=== PATIENT | female | born 1975 | race Caucasian/White ===

== ENCOUNTER 2023-03-27 09:59 | Observation (INO) ==
[2023-03-27] MEDS ORDERED: MoRPHine SULFATE 4 MG/ML 1 ML CARP\\VIAL IV STA (10:34)
[2023-03-27] MEDS ORDERED: FAMOTIDINE 20MG IV PUSH 20 MG/5 ML SYR IV STA (10:34)
[2023-03-27] MEDS ORDERED: ONDANSETRON INJ 2 MG/ML 2 ML VIAL IV STA (10:34)
--- NOTE | 2023-03-27 10:35 | Emergency Department Note ---
History of Present Illness General Chief complaint: Flank Pain Stated complaint: possible gal bladder issue Time Seen by Provider: 03/27/23 10:20 History of Present Illness Maximum Pain Intensity: 8 This is a 47-year-old female that presents to the emergency department via private vehicle with complaints of "possible gallbladder issue". The patient notes for the past several months she has been experiencing what she describes as heartburn. She notes mainly pain postprandially under the right breast region that radiates to her back. She states that this has acutely worsened as of recent. Pain is significant after eating. She has associated fever/chills. She denies any alleviating factors. She has tried Tums and milk with minimal relief. Last evening the pain worsened. She denies any pertinent past medical history, pertinent surgeries. She does have medication allergies but no new ones. Home Medications Medication Instructions Recorded Confirmed Type famotidine 20 mg tablet (Pepcid) 20 mg PO DAILY #14 tabs 03/28/23 Rx ondansetron HCl 4 mg tablet 4 mg PO Q8H PRN nausea and 03/28/23 Rx vomiting #20 tabs pantoprazole 40 mg tablet,delayed 40 mg PO DAILY #14 tabs 03/28/23 Rx release Allergies Allergy/AdvReac Type Severity Reaction Status Date / Time sulfamethoxazole Allergy Severe anaphylaxis Verified 03/27/23 12:44 trimethoprim Allergy Severe anaphylaxis Verified 03/27/23 12:44 Bactrim Allergy Unknown unknown Verified 03/21/14 21:02 bupropion [From Wellbutrin] AdvReac Intermediate blurred Verified 03/27/23 12:44 vision paroxetine [From Paxil] AdvReac Intermediate Unknown Verified 03/27/23 12:44 Past Med/Surg History Medical History Acute cystitis Dysfunctional uterine bleeding Insomnia Irregular periods (01/04/13) Surgical History H/O tooth extraction History of dilatation and curettage History of hysterectomy History of shoulder surgery Family History Mother Heart disease Grandmother (Maternal) Ovarian cancer Uterine cancer Sister Endometriosis Denies family history of Colon cancer Prostate cancer Myocardial infarction Breast cancer Social History Smoking Status: Current every day smoker Tobacco Type: Cigarettes and E-cigarettes / Vaping Age Started Using Tobacco: 12; packs per day: 1; Second Hand Exposure: Yes; Do You Dip or Chew Tobacco: No; Hx Alcohol Use: No Hx Substance Use: Yes Last Used Substance: Days (ago) Last Used Substance Other:: 3 yrs ago Substance Use Type Other:: medical marijuana Preferred Language: Citizen Of [place] Communication Ability: Effective Visual Impairment: Partially Limited Hearing Ability: Normal Calliope Player Required: No Beliefs That Will Affect Care: None marital status: Current Living Situation: Other Current Living Situation Comment: sister current occupational status: employed current occupation: [employer] Feels Safe at Home: Yes Safety Concerns: Feels Safe At This Time Childhood Exposure to Second-Hand Smoke: Yes Dental Care, Regularly: Yes Physical Activity Frequency: Daily Seatbelt Use: sometimes Sunscreen Use: No Do you think of yourself as: straight/heterosexual Assistive Devices: None Review of Systems A total of 10 systems reviewed and were otherwise negative Physical Exam Vital Signs Vital Signs - 24 hr 03/27/23 12:00 03/27/23 13:04 03/27/23 13:05 Pulse Rate 70 Pulse Rate [Bilateral] 51 L 70 Respiratory Rate 18 18 18 Respiratory Depth Normal Blood Pressure [Left Arm] 113/69 123/87 Blood Pressure Mean [Left Arm] 83 99 Pulse Oximetry 99 96 98 Oxygen Delivery Method Room Air Room Air Room Air VITAL SIGNS - Vital signs and nursing notes were reviewed. Stable and afebrile. GENERAL -47-year-old female appearing her stated age who is in no acute distress. Communicates well with provider and answers questions appropriately. SKIN - Without rashes. HEAD - NC/AT. EYES - PERRL with EOMI bilaterally. Sclera anicteric. EARS - No deformities of external structures noted on gross examination bilaterally. NOSE - Midline and without cyanosis. No epistaxis or purulent drainage noted. MOUTH/OROPHARYNX - Without perioral cyanosis. NECK - Neck with FROM. No nuchal rigidity. LUNGS - Chest wall symmetric without accessory muscle use, intercostals retractions, or central cyanosis. Normal vesicular breath sounds CTA B/L. No wheezes, rales, or rhonchi appreciated. CARDIAC - RRR with S1/S2. No murmur, rubs, or gallops appreciated. ABDOMEN - Abdominal contour normal without pulsations or visible masses. BS normoactive all four quadrants. RUQ TTP noted. No palpable masses, hepatosplenomegaly, or ascites noted. EXTREMITIES - No clubbing or peripheral cyanosis. +5/5 strength noted in UE/LE bilaterally. NEUROLOGIC - Cranial nerves II through XII grossly intact. PSYCH - A&Ox3 and cooperates fully with examiner. Pt is very pleasant and interacts well with examiner. Course Administered Medications Discontinued Medications Al Hydrox/Mg Hydrox/Simethicone (Aluminum/Magnesium Susp 30 Ml Udc) 30 ml PO NOW STA Stop: 03/28/23 10:42 Last Admin: 03/28/23 12:11 Dose: 30 ml Documented By: JOSE Famotidine (Famotidine Susp 40 Mg/5 Ml Udp) 40 mg PO DAILY JOSIANE Stop: 04/27/23 10:59 Last Admin: 03/28/23 12:06 Dose: 40 mg Documented By: JOSE Famotidine (Pepcid 20mg Iv Push) 20 mg in 5 mls @ 2.5 mls/min IV NOW STA Stop: 03/27/23 10:35 Last Admin: 03/27/23 10:52 Dose: 2.5 mls/min Documented By: SHANNON Pantoprazole Sodium 40 mg/ (Syringe) 10 mls @ 5 mls/min IV NOW ONE Stop: 03/27/23 13:51 Last Admin: 03/27/23 21:41 Dose: Not Given Documented By: ABDULKADIR Sodium Chloride (Nss 1000ml) 1,000 mls @ 125 mls/hr IV .Q8H JOSIANE Stop: 04/26/23 14:29 Last Admin: 03/28/23 13:26 Dose: Not Given Documented By: Infusion: 03/28/23 13:26 Dose: 0 mls/hr Documented By: Admin: 03/28/23 03:42 Dose: 125 mls/hr Documented By: Infusion: 03/28/23 02:48 Dose: 125 mls/hr Documented By: Admin: 03/27/23 18:48 Dose: 125 mls/hr Documented By: JOSE Piperacillin Sod/Tazobactam (Sod 4.5 gm/ Dextrose) 120 mls @ 240 mls/hr IV NOW STA; Protocol Stop: 03/27/23 15:13 Last Admin: 03/27/23 21:41 Dose: Not Given Documented By: ABDULKADIR Piperacillin Sod/Tazobactam (Sod 4.5 gm/ Dextrose) 120 mls @ 240 mls/hr IV NOW STA; Protocol Stop: 03/27/23 19:57 Last Admin: 03/27/23 20:18 Dose: Not Given Documented By: ABDULKADIR Piperacillin Sod/Tazobactam (Sod 4.5 gm/ Dextrose) 120 mls @ 30 mls/hr IV Q8H JOSIANE; Protocol Stop: 04/07/23 00:59 Last Infusion: 03/28/23 13:27 Dose: 0 mls/hr Documented By: Admin: 03/28/23 09:31 Dose: 30 mls/hr Documented By: Infusion: 03/28/23 05:25 Dose: 0 mls/hr Documented By: Admin: 03/28/23 01:08 Dose: 30 mls/hr Documented By: ABDULKADIR Pantoprazole Sodium 40 mg/ (Syringe) 10 mls @ 5 mls/min IV NOW ONE Stop: 03/27/23 20:16 Last Admin: 03/27/23 20:29 Dose: 5 mls/min Documented By: ABDULKADIR Piperacillin Sod/Tazobactam (Sod 4.5 gm/ Dextrose) 120 mls @ 240 mls/hr IV NOW ONE; Protocol Stop: 03/27/23 20:49 Last Infusion: 03/27/23 21:42 Dose: 0 mls/hr Documented By: Admin: 03/27/23 20:30 Dose: 240 mls/hr Documented By: ABDULKADIR Pantoprazole Sodium 40 mg/ (Syringe) 10 mls @ 5 mls/min IV DAILY@1100 JOSIANE Stop: 04/27/23 10:59 Last Admin: 03/28/23 12:03 Dose: 5 mls/min Documented By: JOSE Ioversol (Optiray 320 100ml) 92 ml IV ONCE ONE Stop: 03/27/23 12:41 Last Admin: 03/27/23 12:30 Dose: 92 ml Documented By: CONTRERAS Ketorolac Tromethamine (Ketorolac Tromethamine 15 Mg/Ml Vial) 15 mg IV NOW ONE Stop: 03/27/23 15:31 Last Admin: 03/27/23 21:41 Dose: Not Given Documented By: ABDULKADIR Miscellaneous (Remove Nicoderm Patch) 1 each N/A DAILY@0859 [facility] Stop: 04/27/23 08:58 Last Admin: 03/28/23 06:57 Dose: Not Given Documented By: JOSE Morphine Sulfate (Morphine Sulfate 4 Mg/Ml 1 Ml Carp\\Vial) 4 mg IV NOW STA Stop: 03/27/23 10:35 Last Admin: 03/27/23 10:51 Dose: 4 mg Documented By: AM Morphine Sulfate (Morphine Sulfate 2 Mg/Ml Carp) 2 mg IV NOW STA Stop: 03/27/23 12:01 Last Admin: 03/27/23 12:15 Dose: 2 mg Documented By: SERGEY Morphine Sulfate (Morphine Sulfate 4 Mg/Ml 1 Ml Carp\\Vial) 3 mg IV Q3H PRN PRN Reason: Pain Stop: 04/10/23 14:24 Last Admin: 03/28/23 09:17 Dose: 3 mg Documented By: Admin: 03/27/23 22:52 Dose: 3 mg Documented By: Admin: 03/27/23 19:41 Dose: 3 mg Documented By: ABDULKADIR Nicotine (Nicotine 14 Mg/24 Hr Patch) 14 mg TD QAM [facility] Stop: 04/26/23 16:44 Last Admin: 03/27/23 21:41 Dose: Not Given Documented By: ABDULKADIR Nicotine (Nicotine 14 Mg/24 Hr Patch) 14 mg TD DAILY [facility] Stop: 04/26/23 19:59 Last Admin: 03/28/23 09:24 Dose: 14 mg Documented By: Admin: 03/27/23 21:39 Dose: Not Given Documented By: ABDULKADIR Ondansetron HCl (Ondansetron Inj 2 Mg/Ml 2 Ml Vial) 4 mg IV NOW STA Stop: 03/27/23 10:35 Last Admin: 03/27/23 10:50 Dose: 4 mg Documented By: AM Potassium Chloride (Potassium Chloride Crtab 20 Meq Tabcr) 20 meq PO NOW STA Stop: 03/27/23 15:23 Last Admin: 03/27/23 21:41 Dose: Not Given Documented By: ABDULKADIR Potassium Chloride (Potassium Chloride Crtab 20 Meq Tabcr) 20 meq PO NOW STA Stop: 03/27/23 19:55 Last Admin: 03/27/23 20:28 Dose: 20 meq Documented By: ABDULKADIR Medical Decision Making Laboratory Data 03/28/23 07:24 03/28/23 07:24 Lab Results 03/27/23 03/27/23 03/27/23 Range/Units 10:20 10:20 10:20 WBC 12.88 H (4.8-10.8) K/ul RBC 4.25 (4.20-5.40) M/uL Hgb 15.4 (12.0-16.0) g/dl Hct 43.1 (37.0-47.0) % MCV 101.4 H (80.0-100.0) fL MCH 36.2 H (25.0-34.0) pg MCHC 35.7 (32.0-36.0) g/dL RDW Std Deviation 48.5 H (36.4-46.3) fL RDW Coeff of Viola 12.9 (11.5-14.5) % Plt Count 389 (130-400) K/uL MPV 9.1 L (9.4-12.4) fL Immature Gran % (Auto) 0.5 % Neut % (Auto) 60.6 % Lymph % (Auto) 30.4 % [place] % (Auto) 6.3 % Eos % (Auto) 1.3 % Baso % (Auto) 0.9 % Neut # (Auto) 7.81 H (1.40-6.50) K/uL Lymph # (Auto) 3.91 H (1.20-3.40) K/uL [place] # (Auto) 0.81 H (0.11-0.59) K/uL Eos # (Auto) 0.17 (0.00-0.50) K/uL Baso # (Auto) 0.11 (0.00-0.20) K/uL Immature Gran # (Auto) 0.07 (0.01-0.20) K/uL Sodium 140 (136-145) mmol/L Potassium 3.5 (3.5-5.1) mmol/L Chloride 107 (98-107) mmol/L Carbon Dioxide 28 (21-32) mmol/L Anion Gap 5 (3-11) BUN 14 (6-23) mg/dl Creatinine 0.83 (0.6-1.2) mg/dl Est Cr Clr Drug Dosing 62.5 ml/min Est GFR ( Amer) 96.6 ml/min Est GFR (Non-Af Amer) 83.4 ml/min BUN/Creatinine Ratio 16.9 (10-20) Glucose 58 L (70-99(Fasting)) mg/dl Calcium 10.1 (8.6-10.3) mg/dl Total Bilirubin 0.3 (0.2-1.0) mg/dl AST 14 (13-39) U/L ALT 11 (7-52) U/L Alkaline Phosphatase 74 (34-104) U/L Troponin I High Sens 4.2 (0-14) pg/ml Total Protein 7.0 (6.0-8.3) gm/dl Albumin 4.3 (3.4-5.0) gm/dl Globulin 2.7 (2.5-4.0) gm/dl Albumin/Globulin Ratio 1.6 (0.9-2) Lipase 20 (11-82) U/L HCG, Qual Negative (Negative) Urine Color Urine Appearance (Clear) Urine pH (4.5-7.5) Ur Specific [place] (1.000-1.030) Urine Protein (Negative) Urine Glucose (UA) (Negative) Urine Ketones (Negative) Urine Blood (Negative) Urine Nitrite (Negative) Urine Bilirubin (Negative) Urine Urobilinogen (Negative) Ur Leukocyte Esterase (Negative) Urine WBC (Auto) (0-5) /hpf Urine RBC (Auto) (0-4) /hpf U Hyaline Cast (Auto) (0-5) /lpf U Epithel Cells (Auto) (0-5) /lpf Urine Bacteria (Auto) (Negative) 03/27/23 Range/Units 11:40 WBC (4.8-10.8) K/ul RBC (4.20-5.40) M/uL Hgb (12.0-16.0) g/dl Hct (37.0-47.0) % MCV (80.0-100.0) fL MCH (25.0-34.0) pg MCHC (32.0-36.0) g/dL RDW Std Deviation (36.4-46.3) fL RDW Coeff of Viola (11.5-14.5) % Plt Count (130-400) K/uL MPV (9.4-12.4) fL Immature Gran % (Auto) % Neut % (Auto) % Lymph % (Auto) % [place] % (Auto) % Eos % (Auto) % Baso % (Auto) % Neut # (Auto) (1.40-6.50) K/uL Lymph # (Auto) (1.20-3.40) K/uL [place] # (Auto) (0.11-0.59) K/uL Eos # (Auto) (0.00-0.50) K/uL Baso # (Auto) (0.00-0.20) K/uL Immature Gran # (Auto) (0.01-0.20) K/uL Sodium (136-145) mmol/L Potassium (3.5-5.1) mmol/L Chloride (98-107) mmol/L Carbon Dioxide (21-32) mmol/L Anion Gap (3-11) BUN (6-23) mg/dl Creatinine (0.6-1.2) mg/dl Est Cr Clr Drug Dosing ml/min Est GFR ( Amer) ml/min Est GFR (Non-Af Amer) ml/min BUN/Creatinine Ratio (10-20) Glucose (70-99(Fasting)) mg/dl Calcium (8.6-10.3) mg/dl Total Bilirubin (0.2-1.0) mg/dl AST (13-39) U/L ALT (7-52) U/L Alkaline Phosphatase (34-104) U/L Troponin I High Sens (0-14) pg/ml Total Protein (6.0-8.3) gm/dl Albumin (3.4-5.0) gm/dl Globulin (2.5-4.0) gm/dl Albumin/Globulin Ratio (0.9-2) Lipase (11-82) U/L HCG, Qual (Negative) Urine Color Yellow Urine Appearance Clear (Clear) Urine pH 6.0 (4.5-7.5) Ur Specific [place] 1.004 (1.000-1.030) Urine Protein Negative (Negative) Urine Glucose (UA) Negative (Negative) Urine Ketones Negative (Negative) Urine Blood 3+ H (Negative) Urine Nitrite Negative (Negative) Urine Bilirubin Negative (Negative) Urine Urobilinogen Negative (Negative) Ur Leukocyte Esterase Negative (Negative) Urine WBC (Auto) 1-5 (0-5) /hpf Urine RBC (Auto) 0-4 (0-4) /hpf U Hyaline Cast (Auto) 1-5 (0-5) /lpf U Epithel Cells (Auto) 20-30 H (0-5) /lpf Urine Bacteria (Auto) Negative (Negative) Imaging Data Radiologist's Impression: XR chest 1V portable CLINICAL HISTORY: RUQ abd pain TECHNIQUE: Single frontal radiograph of the chest was obtained. Comparison: Comparison is made to chest and abdomen radiographs 12/27/2013 FINDINGS: No lines and tubes are seen. The cardiomediastinal silhouette is normal. The lungs are clear. No evidence of pleural effusion or pneumothorax. IMPRESSION: No acute chest disease. ACT 112: Negative or not required by law. Electronically signed by: Travis Mcgovern M.D. 03/27/2023 10:45 AM US gallbladder CLINICAL HISTORY: Right upper quadrant abdominal pain. COMPARISON STUDY: Right upper quadrant ultrasound March 21, [address] of the abdomen and pelvis March 22, 2014. FINDINGS: The liver is sonographically normal with exception of a 9 mm right hepatic lobe cyst. There is no biliary ductal dilatation. Common bile duct measures 5 mm in caliber. Pancreas is unremarkable by sonography. There are no gallstones. There is no gallbladder wall thickening. A tiny 3 mm gallbladder polyp is incidentally noted. There is no right hydronephrosis. Right-sided extrarenal pelvis is incidentally noted. IMPRESSION: No gallstones or biliary ductal dilatation. ACT 112: Negative or not required by law. Electronically signed by: Bernard Rae M.D. 03/27/2023 11:[address] OF THE ABDOMEN AND PELVIS WITH CONTRAST CLINICAL HISTORY: Right upper quadrant abdominal pain. COMPARISON STUDY: CT of the abdomen and pelvis March 22, 2014 and right upper quadrant ultrasound performed earlier today. TECHNIQUE: Following IV administration of 92 mL of Optiray, axial images of the abdomen and pelvis were obtained from the lung bases to the proximal femurs. Images were reviewed in the axial, sagittal, and coronal planes. IV contrast was administered without complication. Automated exposure control was utilized for the study. A dose lowering technique was utilized adhering to the principles of ALARA. CT DOSE: 342.27 mGy.cm FINDINGS: Lung bases are unremarkable. No pneumatosis, free air or portal venous gas is present. A few hepatic cysts are again noted. These are benign. There are no biliary or pancreatic ductal dilatation. The spleen, adrenal glands, kidneys and pancreas are unremarkable. There are no ureteral calculi. The appendix is normal. The caliber and wall thickness of small and large bowel are normal. There is no ascites. No lymphadenopathy. No fluid collections. Major vasculature is patent. No acute fractures. IMPRESSION: 1. No acute process within the abdomen or pelvis. 2. Normal appendix. No bowel obstruction. No bowel wall thickening. ACT 112: Negative or not required by law. Electronically signed by: Bernard Rae M.D. 03/27/2023 1:06 PM MDM Narrative Patient was seen and evaluated as above in room A12. Review was performed of triage nursing notes and vital signs. After obtaining a thorough history and physical examination the above work up was performed. Patient presents to us today for evaluation of right upper quadrant abdominal pain that is worse postprandially. Patient appears to be in pain. She has reproducible right upper quadrant abdominal pain. No fever. Options of care were discussed with the patient. IV access was established. Labs were drawn. Mild leukocytosis. No concerning anemia. No emergent metabolic disturbance. Urinalysis does not suggest infection. An ultrasound was obtained of the gallbladder which was essentially negative for emergent process as well as CT scan of the abdomen/pelvis noting the location of discomfort. CT scan also returned with no acute process. To be thorough, a chest x-ray, EKG and troponin were also ordered. EKG reveals normal sinus rhythm at a rate of 71 bpm. QTc 406. QRS 74. Troponin within normal range. The patient while here in the ED did require more than 1 dose of IV analgesia. She also was provided IV antiemetic as well as IV Pepcid. She continues with symptoms. With her continued postprandial right upper quadrant abdominal pain in the outpatient setting now with worsening symptoms with leukocytosis despite negative imaging thus far, I found it reasonable to discuss presentation with general surgery, Dr. Hayes. At this time we will proceed with inpatient management via medicine service, surgery consult and HIDA scan. At this time I do believe further evaluation and management is warranted in the inpatient setting. Case discussed with the hospitalist. IV PPI recommended pending evaluation. Please refer to further documentation regarding her stay. Patient amenable to proceeding with inpatient management. Low suspicion for acute cardiac etiology. Low suspicion for PE at this time. GCS: 15 In the evaluation and treatment of this patient, the following differential diagnoses were considered: ASC, [place], Pneumonia, GERD, Cholecystitis, Ascending Cholangitis, Cholydocholithiasis, Bowel Obstruction, PE, Amongst Others. Impression & Plan RUQ pain, Postprandial abdominal pain in right upper quadrant, Leukocytosis Discharge Plan Visit Data Chief Complaint: Flank Pain Stated Complaint: possible gal bladder issue ED Provider: Bora Sarmiento ED Midlevel Provider: Roly Clarke Discharge Problem: RUQ pain, Postprandial abdominal pain in right upper quadrant, Leukocytosis Patient Disposition: Admitted As Inpatient Condition: Good Discharge Instructions Interventions: ED Discharge Assessment Last Done: 03/27/23 18:12
--- NOTE | 2023-03-27 10:46 | XRay Report ---
XR chest 1V portable CLINICAL HISTORY: RUQ abd pain TECHNIQUE: Single frontal radiograph of the chest was obtained. Comparison: Comparison is made to chest and abdomen radiographs 12/27/2013 FINDINGS: No lines and tubes are seen. The cardiomediastinal silhouette is normal. The lungs are clear. No evid ence of pleural effusion or pneumothorax. IMPRESSION: No acute chest disease. ACT 112: Negative or not required by law. Electronically signed by: Travis Mcgovern M.D. 03/27/2023 10:45 AM
[2023-03-27 10:49] LABS: Basophils # (auto) 0.11 K/uL (0.00-0.20); Basophils % (auto) 0.9 %; Eosinophils # (auto) 0.17 K/uL (0.00-0.50); Eosinophils % (auto) 1.3 %; Hematocrit (blood only) 43.1 % (37.0-47.0); Hemoglobin 15.4 g/dl (12.0-16.0); Immature Granulocytes # (auto) 0.07 K/uL (0.01-0.20); Immature Granulocytes % (auto) 0.5 %; Lymphocytes # (auto) 3.91 K/uL (1.20-3.40); Lymphocytes % (auto) 30.4 %; Mean Corpuscular Hemoglobin 36.2 pg (25.0-34.0); Mean Corpuscular Hgb Conc 35.7 g/dL (32.0-36.0); Mean Corpuscular Volume 101.4 fL (80.0-100.0); Mean Platelet Volume 9.1 fL (9.4-12.4); Monocytes # (auto) 0.81 K/uL (0.11-0.59); Monocytes % (auto) 6.3 %; Neutrophils # (auto) 7.81 K/uL (1.40-6.50); Neutrophils % (auto) 60.6 %; Platelet Count 389 K/uL (130-400); RDW Coefficient of Variation 12.9 % (11.5-14.5); RDW Standard Deviation 48.5 fL (36.4-46.3); Red Blood Count 4.25 M/uL (4.20-5.40); White Blood Count 12.88 K/ul (4.8-10.8)
[2023-03-27 11:04] LABS: Pregnancy Test, Serum Negative (Negative)
[2023-03-27 11:07] LABS: Albumin Globulin Ratio 1.6 (0.9-2); Albumin Level 4.3 gm/dl (3.4-5.0); BUN Creatinine Ratio 16.9 (10-20); Bilirubin,Total 0.3 mg/dl (0.2-1.0); Calcium 10.1 mg/dl (8.6-10.3); Creatinine Clr Calc Pharmacy 62.5 ml/min; Est GFR (African American) 96.6 ml/min; Est GFR (Non-African American) 83.4 ml/min; Globulin 2.7 gm/dl (2.5-4.0); Potassium 3.5 mmol/L (3.5-5.1)
[2023-03-27 11:11] LABS: Troponin I High Sensitivity 4.2 pg/ml (0-14)
--- NOTE | 2023-03-27 11:54 | Ultrasound Report ---
US gallbladder CLINICAL HISTORY: Right upper quadrant abdominal pain. COMPARISON STUDY: Right upper quadrant ultrasound March 21, [address] of the abdomen and pelvis A ugust 2013. FINDINGS: The liver is sonographically normal with exception of a 9 mm right hepatic lobe cyst. There is no biliary ductal dilatation. Common bile duct measures 5 mm in caliber. Pancreas is unremarkable by sonography. There are no gallstones. There is no gallbladder wall thickening. A tiny 3 mm gallbla dder polyp is incidentally noted. There is no right hydronephrosis. Right-sided extrarenal pelvis is incidentally noted. IMPRESSION: No gallstones or biliary ductal dilatation. ACT 112: Negative or not required by law. Electronically signed by: Bernard Rae M.D. 03/27/2023 11:53 AM
[2023-03-27] MEDS ORDERED: MoRPHine SULFATE 2 MG/ML CARP IV STA (12:00)
[2023-03-27 12:01] LABS: Appearance Urine Clear (Clear); Bacteria Urine Automated Negative (Negative); Bilirubin Urine Negative (Negative); Blood Urine 3+ (Negative); Color Urine Yellow; Epithelial Cell Urine Auto 20-30 /lpf (0-5); Glucose Urine UA Negative (Negative); Ketones Urine Negative (Negative); Leukocyte Esterase Urine Negative (Negative); Nitrite Urine Negative (Negative); Protein Urine Negative (Negative); RBC Urine Automated 0-4 /hpf (0-4); Specific Gravity Urine 1.004 (1.000-1.030); Urobilinogen Urine Negative (Negative)
[2023-03-27] MEDS ORDERED: OPTIRAY 320 100ml IV ONE (12:40)
--- NOTE | 2023-03-27 13:09 | CT Scan Report ---
CT OF THE ABDOMEN AND PELVIS WITH CONTRAST CLINICAL HISTORY: Right upper quadrant abdominal pain. COMPARISON STUDY: CT of the abdomen and pelvis March 22, 2014 and right upper quadrant ultrasound p erformed earlier today. TECHNIQUE: Following IV administration of 92 mL of Optiray, axial images of the abdomen and pelvis we re obtained from the lung bases to the proximal femurs. Images were reviewed in the axial, sagittal, and coronal planes. IV contrast was administered without complication. Automated exposure control wa s utilized for the study. A dose lowering technique was utilized adhering to the principles of ALARA . CT DOSE: 342.27 mGy.cm FINDINGS: Lung bases are unremarkable. No pneumatosis, free air or portal venous gas is present. A fe w hepatic cysts are again noted. These are benign. There are no biliary or pancreatic ductal dilatati on. The spleen, adrenal glands, kidneys and pancreas are unremarkable. There are no ureteral calculi. The appendix is normal. The caliber and wall thickness of small and large bowel are normal. There is no ascites. No lymphadenopathy. No fluid collections. Major vasculature is patent. No acute fracture s. IMPRESSION: 1. No acute process within the abdomen or pelvis. 2. Normal appendix. No bowel obstruction. No bowel wall thickening. ACT 112: Negative or not required by law. Electronically signed by: Bernard Rae M.D. 03/27/2023 1:06 PM
[2023-03-27] MEDS ORDERED: PANTOprazole 40 MG in SYRINGE 0 ML IV ONE ×2 (13:50→20:15)
--- NOTE | 2023-03-27 13:52 | Surgery Consultation ---
Date of Consultation March 27, 2023 Assessment & Plan (1) RUQ pain: Assessment: Patient is a 47 years old female who presented to ED with intermittent RUQ pain for 2 months. Pain is getting worse today. Patient had the ultrasound CT scan diagnosis normal finding. RBC seen in urine. LFTS normal. Plan: unknown cause right upper quadrant pain. I agreed with medicine team admit pt to hospital for further study. HIDA scan, november order KUB to R/O kidney stone. control pain, start zosyn. repeat labs in morning, clear diet okay. iv fluid, will F/U pt agreed with the plan, i answered all questions. History of Present Illness Reason for Consultation: RUQ pain Requesting Physician: Bora Sarmiento History of Present Illness CC: RUQ pain HPI: Patient is a 47 years old female risks of possible medical history dyslipidemia, anxiety, PTSD, restless leg syndrome and degenerative disc disease( lumbar) and kidney stone. Patient presented to ED with 2-month history intermittent right upper quadrant pain. The pain was sharp. and patient did have more pain today. The patient related to the food intake. The pain radiated to the back. Patient denies nausea vomiting. no fever or chills, no diarrhea or constipation. Patient had a ultrasound study and a CT scan in the ED which were normal. RBCs seen in urine . Allergies Allergy/AdvReac Type Severity Reaction Status Date / Time sulfamethoxazole Allergy Severe anaphylaxis Verified 03/27/23 12:44 trimethoprim Allergy Severe anaphylaxis Verified 03/27/23 12:44 Bactrim Allergy Unknown unknown Verified 03/21/14 21:02 bupropion [From Wellbutrin] AdvReac Intermediate blurred Verified 03/27/23 12:44 vision paroxetine [From Paxil] AdvReac Intermediate Unknown Verified 03/27/23 12:44 Home Medications Medication Instructions Recorded Confirmed Type naproxen sodium 220 mg tablet 220 mg PO BID PRN Pain 03/27/23 03/27/23 History (Aleve) Patient History Medical History Acute cystitis Dysfunctional uterine bleeding Insomnia Irregular periods (01/04/13) Surgical History H/O tooth extraction History of dilatation and curettage History of hysterectomy History of shoulder surgery Family History Mother Heart disease Grandmother (Maternal) Ovarian cancer Uterine cancer Sister Endometriosis Denies family history of Colon cancer Prostate cancer Myocardial infarction Breast cancer Social History Smoking Status: Current every day smoker Tobacco Type: Cigarettes Age Started Using Tobacco: 12; packs per day: 1; Second Hand Exposure: Yes; Do You Dip or Chew Tobacco: No; Hx Alcohol Use: No Hx Substance Use: Yes Last Used Substance: Unknown Last Used Substance Other:: 3 yrs ago Preferred Language: Zambian Communication Ability: Effective Visual Impairment: Partially Limited Hearing Ability: Normal marital status: Current Living Situation: Family Current Living Situation Comment: w/ daughter current occupational status: employed current occupation: [employer] Feels Safe at Home: Yes Childhood Exposure to Second-Hand Smoke: Yes Dental Care, Regularly: Yes Physical Activity Frequency: Daily Seatbelt Use: sometimes Sunscreen Use: No Do you think of yourself as: straight/heterosexual Review of Systems Constitutional: as per Subjective / HPI Eyes: as per Subjective / HPI Respiratory: as per Subjective / HPI Cardiovascular: as per Subjective / HPI Additional Comments: Hyperlipidemia Gastrointestinal: as per Subjective / HPI Genitourinary: Kidney stone Neurologic: as per Subjective / HPI Psychiatric: PTSD Endocrine: as per Subjective / HPI Hematologic / Lymphatic: as per Subjective / HPI Physical Exam Constitutional: WD/WN, vitals as above Eyes: PERRL, conjunctivae normal, anicteric sclerae Neck: trachea midline, no thyromegaly Respiratory: normal respiratory effort, lungs clear to auscultation Cardiovascular: RRR, no murmur, no edema Gastrointestinal (Abdomen): soft, mild tenderness ar RUQ pain, no rebound pain, no distend, BS +. Musculoskeletal: no cyanosis or clubbing, extremities motor strength 5/5 Neurologic: patellar DTR's 2+ bilat, sensation intact Psychiatric: A+Ox3, euthymic affect Results & Data Vital Signs (Past 12 Hours) Vital Signs Temp Pulse Pulse Resp BP BP Pulse Ox 03/27/23 13:05 70 18 123/87 98 03/27/23 13:04 70 18 96 03/27/23 12:00 51 L 18 113/69 99 03/27/23 10:54 73 03/27/23 10:55 100 03/27/23 10:09 36.4 C L 82 20 143/86 H 100 O2 Del Method 03/27/23 13:05 Room Air 03/27/23 13:04 Room Air 03/27/23 12:00 Room Air 03/27/23 10:54 03/27/23 10:55 Room Air 03/27/23 10:09 Room Air Laboratory Results Lab Results 03/27/23 03/27/23 03/27/23 Range/Units 10:20 10:20 10:20 WBC 12.88 H (4.8-10.8) K/ul RBC 4.25 (4.20-5.40) M/uL Hgb 15.4 (12.0-16.0) g/dl Hct 43.1 (37.0-47.0) % MCV 101.4 H (80.0-100.0) fL MCH 36.2 H (25.0-34.0) pg MCHC 35.7 (32.0-36.0) g/dL RDW Std Deviation 48.5 H (36.4-46.3) fL RDW Coeff of Viola 12.9 (11.5-14.5) % Plt Count 389 (130-400) K/uL MPV 9.1 L (9.4-12.4) fL Immature Gran % (Auto) 0.5 % Neut % (Auto) 60.6 % Lymph % (Auto) 30.4 % [place] % (Auto) 6.3 % Eos % (Auto) 1.3 % Baso % (Auto) 0.9 % Neut # (Auto) 7.81 H (1.40-6.50) K/uL Lymph # (Auto) 3.91 H (1.20-3.40) K/uL [place] # (Auto) 0.81 H (0.11-0.59) K/uL Eos # (Auto) 0.17 (0.00-0.50) K/uL Baso # (Auto) 0.11 (0.00-0.20) K/uL Immature Gran # (Auto) 0.07 (0.01-0.20) K/uL Sodium 140 (136-145) mmol/L Potassium 3.5 (3.5-5.1) mmol/L Chloride 107 (98-107) mmol/L Carbon Dioxide 28 (21-32) mmol/L Anion Gap 5 (3-11) BUN 14 (6-23) mg/dl Creatinine 0.83 (0.6-1.2) mg/dl Est Cr Clr Drug Dosing 62.5 ml/min Est GFR ( Amer) 96.6 ml/min Est GFR (Non-Af Amer) 83.4 ml/min BUN/Creatinine Ratio 16.9 (10-20) Glucose 58 L (70-99(Fasting)) mg/dl Calcium 10.1 (8.6-10.3) mg/dl Total Bilirubin 0.3 (0.2-1.0) mg/dl AST 14 (13-39) U/L ALT 11 (7-52) U/L Alkaline Phosphatase 74 (34-104) U/L Troponin I High Sens 4.2 (0-14) pg/ml Total Protein 7.0 (6.0-8.3) gm/dl Albumin 4.3 (3.4-5.0) gm/dl Globulin 2.7 (2.5-4.0) gm/dl Albumin/Globulin Ratio 1.6 (0.9-2) Lipase 20 (11-82) U/L HCG, Qual Negative (Negative) Urine Color Urine Appearance (Clear) Urine pH (4.5-7.5) Ur Specific [place] (1.000-1.030) Urine Protein (Negative) Urine Glucose (UA) (Negative) Urine Ketones (Negative) Urine Blood (Negative) Urine Nitrite (Negative) Urine Bilirubin (Negative) Urine Urobilinogen (Negative) Ur Leukocyte Esterase (Negative) Urine WBC (Auto) (0-5) /hpf Urine RBC (Auto) (0-4) /hpf U Hyaline Cast (Auto) (0-5) /lpf U Epithel Cells (Auto) (0-5) /lpf Urine Bacteria (Auto) (Negative) 03/27/23 Range/Units 11:40 WBC (4.8-10.8) K/ul RBC (4.20-5.40) M/uL Hgb (12.0-16.0) g/dl Hct (37.0-47.0) % MCV (80.0-100.0) fL MCH (25.0-34.0) pg MCHC (32.0-36.0) g/dL RDW Std Deviation (36.4-46.3) fL RDW Coeff of Viola (11.5-14.5) % Plt Count (130-400) K/uL MPV (9.4-12.4) fL Immature Gran % (Auto) % Neut % (Auto) % Lymph % (Auto) % [place] % (Auto) % Eos % (Auto) % Baso % (Auto) % Neut # (Auto) (1.40-6.50) K/uL Lymph # (Auto) (1.20-3.40) K/uL [place] # (Auto) (0.11-0.59) K/uL Eos # (Auto) (0.00-0.50) K/uL Baso # (Auto) (0.00-0.20) K/uL Immature Gran # (Auto) (0.01-0.20) K/uL Sodium (136-145) mmol/L Potassium (3.5-5.1) mmol/L Chloride (98-107) mmol/L Carbon Dioxide (21-32) mmol/L Anion Gap (3-11) BUN (6-23) mg/dl Creatinine (0.6-1.2) mg/dl Est Cr Clr Drug Dosing ml/min Est GFR ( Amer) ml/min Est GFR (Non-Af Amer) ml/min BUN/Creatinine Ratio (10-20) Glucose (70-99(Fasting)) mg/dl Calcium (8.6-10.3) mg/dl Total Bilirubin (0.2-1.0) mg/dl AST (13-39) U/L ALT (7-52) U/L Alkaline Phosphatase (34-104) U/L Troponin I High Sens (0-14) pg/ml Total Protein (6.0-8.3) gm/dl Albumin (3.4-5.0) gm/dl Globulin (2.5-4.0) gm/dl Albumin/Globulin Ratio (0.9-2) Lipase (11-82) U/L HCG, Qual (Negative) Urine Color Yellow Urine Appearance Clear (Clear) Urine pH 6.0 (4.5-7.5) Ur Specific [place] 1.004 (1.000-1.030) Urine Protein Negative (Negative) Urine Glucose (UA) Negative (Negative) Urine Ketones Negative (Negative) Urine Blood 3+ H (Negative) Urine Nitrite Negative (Negative) Urine Bilirubin Negative (Negative) Urine Urobilinogen Negative (Negative) Ur Leukocyte Esterase Negative (Negative) Urine WBC (Auto) 1-5 (0-5) /hpf Urine RBC (Auto) 0-4 (0-4) /hpf U Hyaline Cast (Auto) 1-5 (0-5) /lpf U Epithel Cells (Auto) 20-30 H (0-5) /lpf Urine Bacteria (Auto) Negative (Negative) Diagnostic Findings CT OF THE ABDOMEN AND PELVIS WITH CONTRAST CLINICAL HISTORY: Right upper quadrant abdominal pain. COMPARISON STUDY: CT of the abdomen and pelvis March 22, 2014 and right upper quadrant ultrasound performed earlier today. TECHNIQUE: Following IV administration of 92 mL of Optiray, axial images of the abdomen and pelvis were obtained from the lung bases to the proximal femurs. Images were reviewed in the axial, sagittal, and coronal planes. IV contrast was administered without complication. Automated exposure control was utilized for the study. A dose lowering technique was utilized adhering to the principles of ALARA. CT DOSE: 342.27 mGy.cm FINDINGS: Lung bases are unremarkable. No pneumatosis, free air or portal venous gas is present. A few hepatic cysts are again noted. These are benign. There are no biliary or pancreatic ductal dilatation. The spleen, adrenal glands, kidneys and pancreas are unremarkable. There are no ureteral calculi. The appendix is normal. The caliber and wall thickness of small and large bowel are normal. There is no ascites. No lymphadenopathy. No fluid collections. Major vasculature is patent. No acute fractures. IMPRESSION: 1. No acute process within the abdomen or pelvis. 2. Normal appendix. No bowel obstruction. No bowel wall thickening. ACT 112: Negative or not required by law. US gallbladder CLINICAL HISTORY: Right upper quadrant abdominal pain. COMPARISON STUDY: Right upper quadrant ultrasound March 21, [address] of the abdomen and pelvis March 22, 2014. FINDINGS: The liver is sonographically normal with exception of a 9 mm right hepatic lobe cyst. There is no biliary ductal dilatation. Common bile duct measures 5 mm in caliber. Pancreas is unremarkable by sonography. There are no gallstones. There is no gallbladder wall thickening. A tiny 3 mm gallbladder polyp is incidentally noted. There is no right hydronephrosis. Right-sided extrarenal pelvis is incidentally noted. IMPRESSION: No gallstones or biliary ductal dilatation.
--- NOTE | 2023-03-27 13:57 | History & Physical Report ---
Date of Service March 27, 2023 Assessment & Plan (1) RUQ pain: Plan: RUQ pain Epigastric pain GERD, possible PUD Patient reports right upper quadrant pain, symptoms of GERD, and nausea for past 2 months but now worsening Vomiting for past 2 days Also reports significant weight loss CT abdomen pelvis, gallbladder ultrasound, chest x-ray obtained in the ED, and unrevealing. Received Zofran, morphine, famotidine in ED, and not feeling much improved. ED provider discussed with general surgery, recommended HIDA scan HIDA scan is ordered Surgery also recommends IV fluids and Zosyn, which were started Given her history of GERD symptoms, epigastric pain, also concern for possible PUD, will also start IV PPI Cont. NPO, IVF, advance to clear liquid if tolerates pain management Patient may benefit from gastroenterology consultation outpatient or inpatient depending on her symptoms during her hosp. stay DVT ppx scds History of Present Illness Chief Complaint: RUQ pain Primary Care Provider: Yuli Castro PA-C Pt is a 47 F with hx of cervical spondylosis, restless leg syndrome, major depressive disorder, tobacco use disorder, who now presents with right upper quadrant pain radiating to her back, and worsening symptoms of GERD for past 2 months, however much worse today. Patient denies taking any medications at this time besides using medical marijuana. She smokes about half a pack a day, denies any alcohol use. Past medical history review shows using NSAIDs. Patient reports having nausea and vomiting for the past 2 days, she also says that she has been nauseous almost all the time for past 2 months and her oral intake has been poor. She also reports losing significant amount of weight. Denies any diarrhea, blood in the stool or hematemesis. No fevers chills chest pain shortness of breath. No dysuria. No significant cough. In the ED, CT abdomen pelvis was obtained as well as ultrasound of gallbladder and chest x-ray, which were all unrevealing. WBC 12.8K. She received Zofran and morphine, and famotidine. She does not feel much improved yet. Patient's son is present at the bedside. ED consulted with surgery, Dr. Hayes, who recommended HIDA scan. Reviewed his note, recommends IV fluids and Zosyn and will continue to closely monitor. Allergies Allergy/AdvReac Type Severity Reaction Status Date / Time sulfamethoxazole Allergy Severe anaphylaxis Verified 03/27/23 12:44 trimethoprim Allergy Severe anaphylaxis Verified 03/27/23 12:44 Bactrim Allergy Unknown unknown Verified 03/21/14 21:02 bupropion [From Wellbutrin] AdvReac Intermediate blurred Verified 03/27/23 12:44 vision paroxetine [From Paxil] AdvReac Intermediate Unknown Verified 03/27/23 12:44 Home Medications Medication Instructions Recorded Confirmed Type naproxen sodium 220 mg tablet 220 mg PO BID PRN Pain 03/27/23 03/27/23 History (Aleve) Past Med/Surg History Medical History Acute cystitis Dysfunctional uterine bleeding Insomnia Irregular periods (01/04/13) Surgical History H/O tooth extraction History of dilatation and curettage History of hysterectomy History of shoulder surgery Family History Mother Heart disease Grandmother (Maternal) Ovarian cancer Uterine cancer Sister Endometriosis Denies family history of Colon cancer Prostate cancer Myocardial infarction Breast cancer Social History Smoking Status: Current every day smoker Tobacco Type: Cigarettes Age Started Using Tobacco: 12; packs per day: 1; Second Hand Exposure: Yes; Do You Dip or Chew Tobacco: No; Hx Alcohol Use: No Hx Substance Use: Yes Last Used Substance: Unknown Last Used Substance Other:: 3 yrs ago Preferred Language: Pakistani Communication Ability: Effective Visual Impairment: Partially Limited Hearing Ability: Normal marital status: Current Living Situation: Family Current Living Situation Comment: w/ daughter current occupational status: employed current occupation: [employer] Feels Safe at Home: Yes Childhood Exposure to Second-Hand Smoke: Yes Dental Care, Regularly: Yes Physical Activity Frequency: Daily Seatbelt Use: sometimes Sunscreen Use: No Do you think of yourself as: straight/heterosexual Review of Systems Review of Systems: All systems reviewed & are unremarkable except as noted in HPI & below Physical Exam Constitutional: WD/WN, vitals as above Eyes: PERRL, conjunctivae normal, anicteric sclerae ENMT: external ear and nose normal, oropharynx normal Neck: trachea midline, no thyromegaly Respiratory: normal respiratory effort, lungs clear to auscultation Cardiovascular: RRR, no murmur, no edema Chest (Breasts): Chest: normal inspection of chest Gastrointestinal (Abdomen): Inspection/Auscultation: abdomen normal to inspection (soft abdomen, tender at epigastric and RUQ region) Musculoskeletal: no cyanosis or clubbing, extremities motor strength 5/5 Skin: no rashes, warm and dry Neurologic: PERRL, EOMI, accommodation nl, no face palsy, no dysarthria Psychiatric: A+Ox3, euthymic affect Results & Data Results & Data Vital Signs (Past 12 Hours) Vital Signs Temp Pulse Pulse Resp BP BP Pulse Ox 03/27/23 13:05 70 18 123/87 98 03/27/23 13:04 70 18 96 03/27/23 12:00 51 L 18 113/69 99 03/27/23 10:54 73 03/27/23 10:55 100 03/27/23 10:09 36.4 C L 82 20 143/86 H 100 O2 Del Method 03/27/23 13:05 Room Air 03/27/23 13:04 Room Air 03/27/23 12:00 Room Air 03/27/23 10:54 03/27/23 10:55 Room Air 03/27/23 10:09 Room Air Laboratory Results 03/27/23 03/27/23 03/27/23 Range/Units 11:40 10:20 10:20 WBC (4.8-10.8) K/ul RBC (4.20-5.40) M/uL Hgb (12.0-16.0) g/dl Hct (37.0-47.0) % MCV (80.0-100.0) fL MCH (25.0-34.0) pg MCHC (32.0-36.0) g/dL RDW Std Deviation (36.4-46.3) fL RDW Coeff of Viola (11.5-14.5) % Plt Count (130-400) K/uL MPV (9.4-12.4) fL Immature Gran % (Auto) % Neut % (Auto) % Lymph % (Auto) % [place] % (Auto) % Eos % (Auto) % Baso % (Auto) % Neut # (Auto) (1.40-6.50) K/uL Lymph # (Auto) (1.20-3.40) K/uL [place] # (Auto) (0.11-0.59) K/uL Eos # (Auto) (0.00-0.50) K/uL Baso # (Auto) (0.00-0.20) K/uL Immature Gran # (Auto) (0.01-0.20) K/uL Sodium 140 (136-145) mmol/L Potassium 3.5 (3.5-5.1) mmol/L Chloride 107 (98-107) mmol/L Carbon Dioxide 28 (21-32) mmol/L Anion Gap 5 (3-11) BUN 14 (6-23) mg/dl Creatinine 0.83 (0.6-1.2) mg/dl Est Cr Clr Drug Dosing 62.5 ml/min Est GFR ( Amer) 96.6 ml/min Est GFR (Non-Af Amer) 83.4 ml/min BUN/Creatinine Ratio 16.9 (10-20) Glucose 58 L (70-99(Fasting)) mg/dl Calcium 10.1 (8.6-10.3) mg/dl Total Bilirubin 0.3 (0.2-1.0) mg/dl AST 14 (13-39) U/L ALT 11 (7-52) U/L Alkaline Phosphatase 74 (34-104) U/L Troponin I High Sens 4.2 (0-14) pg/ml Total Protein 7.0 (6.0-8.3) gm/dl Albumin 4.3 (3.4-5.0) gm/dl Globulin 2.7 (2.5-4.0) gm/dl Albumin/Globulin Ratio 1.6 (0.9-2) Lipase 20 (11-82) U/L HCG, Qual Negative (Negative) Urine Color Yellow Urine Appearance Clear (Clear) Urine pH 6.0 (4.5-7.5) Ur Specific [place] 1.004 (1.000-1.030) Urine Protein Negative (Negative) Urine Glucose (UA) Negative (Negative) Urine Ketones Negative (Negative) Urine Blood 3+ H (Negative) Urine Nitrite Negative (Negative) Urine Bilirubin Negative (Negative) Urine Urobilinogen Negative (Negative) Ur Leukocyte Esterase Negative (Negative) Urine WBC (Auto) 1-5 (0-5) /hpf Urine RBC (Auto) 0-4 (0-4) /hpf U Hyaline Cast (Auto) 1-5 (0-5) /lpf U Epithel Cells (Auto) 20-30 H (0-5) /lpf Urine Bacteria (Auto) Negative (Negative) 03/27/23 Range/Units 10:20 WBC 12.88 H (4.8-10.8) K/ul RBC 4.25 (4.20-5.40) M/uL Hgb 15.4 (12.0-16.0) g/dl Hct 43.1 (37.0-47.0) % MCV 101.4 H (80.0-100.0) fL MCH 36.2 H (25.0-34.0) pg MCHC 35.7 (32.0-36.0) g/dL RDW Std Deviation 48.5 H (36.4-46.3) fL RDW Coeff of Viola 12.9 (11.5-14.5) % Plt Count 389 (130-400) K/uL MPV 9.1 L (9.4-12.4) fL Immature Gran % (Auto) 0.5 % Neut % (Auto) 60.6 % Lymph % (Auto) 30.4 % [place] % (Auto) 6.3 % Eos % (Auto) 1.3 % Baso % (Auto) 0.9 % Neut # (Auto) 7.81 H (1.40-6.50) K/uL Lymph # (Auto) 3.91 H (1.20-3.40) K/uL [place] # (Auto) 0.81 H (0.11-0.59) K/uL Eos # (Auto) 0.17 (0.00-0.50) K/uL Baso # (Auto) 0.11 (0.00-0.20) K/uL Immature Gran # (Auto) 0.07 (0.01-0.20) K/uL Sodium (136-145) mmol/L Potassium (3.5-5.1) mmol/L Chloride (98-107) mmol/L Carbon Dioxide (21-32) mmol/L Anion Gap (3-11) BUN (6-23) mg/dl Creatinine (0.6-1.2) mg/dl Est Cr Clr Drug Dosing ml/min Est GFR ( Amer) ml/min Est GFR (Non-Af Amer) ml/min BUN/Creatinine Ratio (10-20) Glucose (70-99(Fasting)) mg/dl Calcium (8.6-10.3) mg/dl Total Bilirubin (0.2-1.0) mg/dl AST (13-39) U/L ALT (7-52) U/L Alkaline Phosphatase (34-104) U/L Troponin I High Sens (0-14) pg/ml Total Protein (6.0-8.3) gm/dl Albumin (3.4-5.0) gm/dl Globulin (2.5-4.0) gm/dl Albumin/Globulin Ratio (0.9-2) Lipase (11-82) U/L HCG, Qual (Negative) Urine Color Urine Appearance (Clear) Urine pH (4.5-7.5) Ur Specific [place] (1.000-1.030) Urine Protein (Negative) Urine Glucose (UA) (Negative) Urine Ketones (Negative) Urine Blood (Negative) Urine Nitrite (Negative) Urine Bilirubin (Negative) Urine Urobilinogen (Negative) Ur Leukocyte Esterase (Negative) Urine WBC (Auto) (0-5) /hpf Urine RBC (Auto) (0-4) /hpf U Hyaline Cast (Auto) (0-5) /lpf U Epithel Cells (Auto) (0-5) /lpf Urine Bacteria (Auto) (Negative) Medications Administered CT abd./ pelvis FINDINGS: Lung bases are unremarkable. No pneumatosis, free air or portal venous gas is present. A few hepatic cysts are again noted. These are benign. There are no biliary or pancreatic ductal dilatation. The spleen, adrenal glands, kidneys and pancreas are unremarkable. There are no ureteral calculi. The appendix is normal. The caliber and wall thickness of small and large bowel are normal. There is no ascites. No lymphadenopathy. No fluid collections. Major vasculature is patent. No acute fractures. IMPRESSION: 1. No acute process within the abdomen or pelvis. 2. Normal appendix. No bowel obstruction. No bowel wall thickening. US gallbladder FINDINGS: The liver is sonographically normal with exception of a 9 mm right hepatic lobe cyst. There is no biliary ductal dilatation. Common bile duct measures 5 mm in caliber. Pancreas is unremarkable by sonography. There are no gallstones. There is no gallbladder wall thickening. A tiny 3 mm gallbladder polyp is incidentally noted. There is no right hydronephrosis. Right-sided extrarenal pelvis is incidentally noted. IMPRESSION: No gallstones or biliary ductal dilatation. CXR FINDINGS: No lines and tubes are seen. The cardiomediastinal silhouette is normal. The lungs are clear. No evidence of pleural effusion or pneumothorax. IMPRESSION: No acute chest disease.
[2023-03-27] MEDS ORDERED: PIPERACILLIN/TAZOBACTAM 4.5 GM (over 30 mins) IV STA ×2 (14:44→19:28)
[2023-03-27] MEDS ORDERED: POTASSIUM CHLORIDE CRTAB 20 MEQ TABCR PO STA ×2 (15:22→19:54)
[2023-03-27] MEDS ORDERED: KETOROLAC TROMETHAMINE 15 MG/ML VIAL IV ONE (15:30)
[2023-03-27] MEDS ORDERED: NICOTINE 14 MG/24 HR PATCH TD SCH (16:45)
[2023-03-27] MEDS: SODIUM CHLORIDE 0.9% 1,000 ML IV SCH (18:48)
--- NOTE | 2023-03-27 18:52 | Nuclear Medicine Report ---
NM hepatobiliary CLINICAL HISTORY: RUQ pain TECHNIQUE: Following the intravenous injection of 4.6 mCi of Tc-99m labeled Technetium 99m mebrofeni n, multiple images of the upper abdomen were obtained in the anterior projection with uptake measurem ents of the gallbladder obtained. Once the gallbladder and small bowel were visualized, the patient w as intravenously infused over 30 minutes with 0.02 mcg/kg of Sincalide (CCK), and imaging and uptakes were again obtained. Comparison: None available at the time of this dictation. FINDINGS/IMPRESSION: Normal uptake is in the liver and gallbladder. Radiotracer flows into the common bile duct and is present in the small bowel at 90 minutes. ACT 112: Negative or not required by law. Electronically signed by: Travis Mcgovern M.D. 03/27/2023 6:50 PM
[2023-03-27] MEDS ORDERED: PIPERACILLIN/TAZOBACTAM 4.5 GM in DEXTROSE 5% 100 ML IV SCH (19:00)
[2023-03-27] MEDS: MoRPHine SULFATE 4 MG/ML 1 ML CARP\\VIAL IV PRN ×2 (19:41→22:52)
[2023-03-27] MEDS ORDERED: PIPERACILLIN/TAZOBACTAM 4.5 GM (over 30 mins) IV ONE (20:20)
[2023-03-27] MEDS: NICOTINE 14 MG/24 HR PATCH TD SCH (21:39)
--- NOTE | 2023-03-27 22:24 | XRay Report ---
KUB CLINICAL HISTORY: Right upper quadrant abdominal pain. FINDINGS: 2 AP, portable, supine abdominal radiographs are compared to study dated 07/12/2014 and cor related with abdominal CT performed the same day 03/27/2023. There is a nonobstructed abdominal bowel gas pattern. No evidence of intraperitoneal free air is seen on these supine images. Excreted IV cont rast fills the renal collecting systems. There is also excreted IV contrast in the bladder. Phlebolit hs are noted in the pelvis. The bony structures appear intact. The lung bases are clear as imaged. IMPRESSION: No acute abnormality is identified. Electronically signed by: Negrito Tate M.D. 03/27/2023 10:22 PM
[2023-03-28] MEDS: PIPERACILLIN/TAZOBACTAM 4.5 GM in DEXTROSE 5% 100 ML IV SCH ×2 (01:08→09:31)
[2023-03-28] MEDS: SODIUM CHLORIDE 0.9% 1,000 ML IV SCH ×2 (03:42→13:26)
[2023-03-28 07:55] LABS: Hematocrit (blood only) 35.9 % (37.0-47.0); Hemoglobin 12.5 g/dl (12.0-16.0); Mean Corpuscular Hemoglobin 35.1 pg (25.0-34.0); Mean Corpuscular Hgb Conc 34.8 g/dL (32.0-36.0); Mean Corpuscular Volume 100.8 fL (80.0-100.0); Platelet Count 323 K/uL (130-400); RDW Standard Deviation 48.5 fL (36.4-46.3); Red Blood Count 3.56 M/uL (4.20-5.40); White Blood Count 7.98 K/ul (4.8-10.8)
[2023-03-28 08:22] LABS: Albumin Globulin Ratio 1.5 (0.9-2); Albumin Level 3.4 gm/dl (3.4-5.0); BUN Creatinine Ratio 11.2 (10-20); Bilirubin,Total 0.6 mg/dl (0.2-1.0); Calcium 7.9 mg/dl (8.6-10.3); Creatinine Clr Calc Pharmacy 58.3 ml/min; Est GFR (African American) 88.8 ml/min; Est GFR (Non-African American) 76.6 ml/min; Globulin 2.3 gm/dl (2.5-4.0); Magnesium 1.9 mg/dl (1.7-2.4); Total Protein 5.7 gm/dl (6.0-8.3)
[2023-03-28] MEDS: MoRPHine SULFATE 4 MG/ML 1 ML CARP\\VIAL IV PRN (09:17)
[2023-03-28] MEDS: NICOTINE 14 MG/24 HR PATCH TD SCH (09:24)
[2023-03-28] MEDS ORDERED: ALUMINUM/MAGNESIUM SUSP 30 ML UDC PO STA (10:41)
[2023-03-28 10:59] LABS: Appearance Urine Clear (Clear); Bacteria Urine Automated Negative (Negative); Bilirubin Urine Negative (Negative); Blood Urine 3+ (Negative); Color Urine Yellow; Epithelial Cell Urine Auto >30 /lpf (0-5); Glucose Urine UA Negative (Negative); Ketones Urine Negative (Negative); Leukocyte Esterase Urine Negative (Negative); Nitrite Urine Negative (Negative); Protein Urine Negative (Negative); Specific Gravity Urine 1.023 (1.000-1.030); Urobilinogen Urine Negative (Negative); pH Urine 5.5 (4.5-7.5)
[2023-03-28] MEDS ORDERED: PANTOprazole 40 MG in SYRINGE 0 ML IV SCH (11:00)
[2023-03-28] MEDS ORDERED: FAMOTIDINE SUSP 40 MG/5 ML UDP PO SCH (11:00)
--- NOTE | 2023-03-28 13:23 | Discharge Summary ---
Date of Service March 28, 2023 Admission HPI Per Admitting Provider Pt is a 47 F with hx of cervical spondylosis, restless leg syndrome, major depressive disorder, tobacco use disorder, who now presents with right upper quadrant pain radiating to her back, and worsening symptoms of GERD for past 2 months, however much worse today. Patient denies taking any medications at this time besides using medical marijuana. She smokes about half a pack a day, denies any alcohol use. Past medical history review shows using NSAIDs. Patient reports having nausea and vomiting for the past 2 days, she also says that she has been nauseous almost all the time for past 2 months and her oral intake has been poor. She also reports losing significant amount of weight. Denies any diarrhea, blood in the stool or hematemesis. No fevers chills chest pain shortness of breath. No dysuria. No significant cough. In the ED, CT abdomen pelvis was obtained as well as ultrasound of gallbladder and chest x-ray, which were all unrevealing. WBC 12.8K. She received Zofran and morphine, and famotidine. She does not feel much improved yet. Patient's son is present at the bedside. ED consulted with surgery, Dr. Hayes, who recommended HIDA scan. Reviewed his note, recommends IV fluids and Zosyn and will continue to closely monitor. Admission Exam Per Admitting Provider Constitutional: WD/WN, vitals as above Eyes: PERRL, conjunctivae normal, anicteric sclerae ENMT: external ear and nose normal, oropharynx normal Neck: trachea midline, no thyromegaly Respiratory: normal respiratory effort, lungs clear to auscultation Cardiovascular: RRR, no murmur, no edema Chest (Breasts): Chest: normal inspection of chest Gastrointestinal (Abdomen): Inspection/Auscultation: abdomen normal to inspection (soft abdomen, tender at epigastric and RUQ region) Musculoskeletal: no cyanosis or clubbing, extremities motor strength 5/5 B Skin: no rashes, warm and dry Neurologic: PERRL, EOMI, accommodation nl, no face palsy, no dysarthria Psychiatric: A+Ox3, euthymic affect Principal Diagnosis Abdominal pain Discharge Exam Constitutional + well hydrated; no acute distress Eyes PERRL, conjunctivae normal, anicteric sclerae ENMT external ear and nose normal, oropharynx normal Respiratory normal respiratory effort, lungs clear to auscultation Cardiovascular RRR, no murmur, no edema Gastrointestinal (Abdomen) Soft, epigastric tenderness, no organomegaly, no guarding/rebound. Normal bowel sounds Musculoskeletal no cyanosis or clubbing, extremities motor strength 5/5 Neurologic PERRL, EOMI, accommodation nl, no face palsy, no dysarthria Psychiatric A+Ox3, euthymic affect Discharge Data Allergies Allergy/AdvReac Type Severity Reaction Status Date / Time sulfamethoxazole Allergy Severe anaphylaxis Verified 03/27/23 12:44 trimethoprim Allergy Severe anaphylaxis Verified 03/27/23 12:44 Bactrim Allergy Unknown unknown Verified 03/21/14 21:02 bupropion [From Wellbutrin] AdvReac Intermediate blurred Verified 03/27/23 12:44 vision paroxetine [From Paxil] AdvReac Intermediate Unknown Verified 03/27/23 12:44 Consultations 03/27/23 13:51 ED Decision to Admit Stat 03/27/23 14:26 Consult General Surgery Routine Ordered Studies 03/27/23 10:34 US gallbladder Stat 03/27/23 12:00 CT abd pelvis IV con only Stat Hospital Course (1) Abdominal pain: (2) RUQ pain: RUQ pain Epigastric pain GERD, possible PUD Patient presented with epigastric and right upper quadrant pain and referred to the back Reports heart velasquez and occasional feeling of regurgitation at night Symptoms have been ongoing for past 2 months but now worsening CT abdomen pelvis, gallbladder ultrasound, chest x-ray obtained in the ED were unremarkable HIDA scan was unremarkable Lipase was normal Abdominal pain likely related to Gastritis/PUD Patient started on IV PPI and pepcid She still reports mild to moderate epigastric and RUQ pain today but stated she will like to be discharged today Patient encouraged to follow up with PCP and may need GI follow up for endoscopies if pain persists. Advised to stop NSAID use Discharged on 2 weeks trial of PPI and pepcid Total Time Total Time Spent Total Time Spent (In Minutes): 35 Total Time Includes: Examination of the Patient, Discharge Planning and Medication Reconciliation Discharge Plan Discharge Items Patient Disposition: Home - Self-Care Reason For Visit: Abdominal pain Discharge Diagnosis: Abdominal pain Condition on Discharge: Good Activity: Resume your previous activity Non-emergency contact: Primary Care Provider Call non-emergency contact if: you have any medication questions and your symptoms worsen Follow-up/Referrals: Mingear,Yuli A., PA-C [Primary Care Provider] - (Date & Time 04/03/2023 11:20 AM Provider Arcenio Puri MD [facility] ) Diet: Regular Addtl Attending Provider Instructions: Ms Blanton You came to the hospital complaining of persistent intermittent abdominal pain. You were extensively evaluated without any acute findings on imaging. Please stop taking NSAIDS (alleve, motrin, etc) for now. You are being discharged on a trial of Pantoprazole and pepcid Please ensure follow up with your Primary Doctor. If symptoms persist, you will need further evaluation. Pending Studies at Discharge: No Stand-Alone Forms: My [facility] [employer], Work/School Release, Smoking Cessation Medications and DC Order Prescriptions: New pantoprazole 40 mg tablet,delayed release (DR/EC) 40 mg PO DAILY Qty: 14 0RF famotidine [Pepcid] 20 mg tablet 20 mg PO DAILY Qty: 14 0RF ondansetron HCl 4 mg tablet 4 mg PO Q8H PRN (Reason: nausea and vomiting) Qty: 20 0RF Discontinued naproxen sodium [Aleve] 220 mg Tablet 220 mg PO BID PRN (Reason: Pain) Discharge Orders: Discharge Order (Routine); Ordered 03/28/23 Ordered By: Clarissa Amezquita/Other Patient Handouts: ED Vomiting (Adult) Admission Data Admit Date/Time: 03/27/23 14:24 Attending Provider: Clarissa Gong I. Admit Provider: Everett Sharif Primary Care Provider: Yuli Castro Other Providers: Everett Sharif ; Grecia Hayes Other Interventions: Discharge Summary Assessment (RN) Last Done: 03/28/23 13:44
--- NOTE | 2023-03-28 15:38 | Surgery Progress Note ---
Date of Service March 28, 2023 Assessment & Plan (1) RUQ pain: Plan: Etiology unknown, possible UGI etiology HIDA and KUB unremarkable Plan No surgical intervention recommended at this time Advised GI follow-up as outpatient, may need upper endoscopy Advised clear liquids at home and slowly advanced will send rx for zofran prn nausea to [facility] Admission and Anticipated Discharge Date Admission Date: March 27, 2023 Subjective states she tried to eat chicken and had nausea and vomiting no significant pain no fevers or chills said hospitalist is going to discharge home Physical Exam Constitutional: WD/WN, vitals as above cooperative and comfortable; no acute distress and not ill appearing Respiratory: normal respiratory effort Skin: no rashes, warm and dry no jaundice Psychiatric: A+Ox3, euthymic affect Results & Data Vital Signs (Past 12 Hours) Vital Signs Temp Pulse Pulse Resp BP Pulse Ox O2 Del Method 03/28/23 13:44 36.8 C 59 L 59 L 16 96/62 L 96 03/28/23 07:16 36.8 C 59 L 16 96/62 L 96 Room Air Laboratory Results 03/28/23 03/28/23 03/28/23 Range/Units 08:45 08:45 08:40 WBC (4.8-10.8) K/ul RBC (4.20-5.40) M/uL Hgb (12.0-16.0) g/dl Hct (37.0-47.0) % MCV (80.0-100.0) fL MCH (25.0-34.0) pg MCHC (32.0-36.0) g/dL RDW Std Deviation (36.4-46.3) fL RDW Coeff of Viola (11.5-14.5) % Plt Count (130-400) K/uL MPV (9.4-12.4) fL Sodium (136-145) mmol/L Potassium (3.5-5.1) mmol/L Chloride (98-107) mmol/L Carbon Dioxide (21-32) mmol/L Anion Gap (3-11) BUN (6-23) mg/dl Creatinine (0.6-1.2) mg/dl Est Cr Clr Drug Dosing ml/min Est GFR ( Amer) ml/min Est GFR (Non-Af Amer) ml/min BUN/Creatinine Ratio (10-20) Glucose (70-99(Fasting)) mg/dl Lactate 0.6 (0.4-2.0) mmol/L Calcium (8.6-10.3) mg/dl Phosphorus (2.5-4.9) mg/dl Magnesium (1.7-2.4) mg/dl Total Bilirubin (0.2-1.0) mg/dl AST (13-39) U/L ALT (7-52) U/L Alkaline Phosphatase (34-104) U/L Total Creatine Kinase 63 (26-192) U/L Total Protein (6.0-8.3) gm/dl Albumin (3.4-5.0) gm/dl Globulin (2.5-4.0) gm/dl Albumin/Globulin Ratio (0.9-2) Urine Color Yellow Urine Appearance Clear (Clear) Urine pH 5.5 (4.5-7.5) Ur Specific [place] 1.023 (1.000-1.030) Urine Protein Negative (Negative) Urine Glucose (UA) Negative (Negative) Urine Ketones Negative (Negative) Urine Blood 3+ H (Negative) Urine Nitrite Negative (Negative) Urine Bilirubin Negative (Negative) Urine Urobilinogen Negative (Negative) Ur Leukocyte Esterase Negative (Negative) Urine WBC (Auto) 1-5 (0-5) /hpf Urine RBC (Auto) 10-30 H (0-4) /hpf U Hyaline Cast (Auto) 1-5 (0-5) /lpf U Epithel Cells (Auto) >30 H (0-5) /lpf Urine Bacteria (Auto) Negative (Negative) 03/28/23 03/28/23 Range/Units 07:24 07:24 WBC 7.98 (4.8-10.8) K/ul RBC 3.56 L (4.20-5.40) M/uL Hgb 12.5 D (12.0-16.0) g/dl Hct 35.9 L (37.0-47.0) % MCV 100.8 H (80.0-100.0) fL MCH 35.1 H (25.0-34.0) pg MCHC 34.8 (32.0-36.0) g/dL RDW Std Deviation 48.5 H (36.4-46.3) fL RDW Coeff of Viola 13.0 (11.5-14.5) % Plt Count 323 (130-400) K/uL MPV 9.0 L (9.4-12.4) fL Sodium 140 (136-145) mmol/L Potassium 4.0 (3.5-5.1) mmol/L Chloride 112 H (98-107) mmol/L Carbon Dioxide 25 (21-32) mmol/L Anion Gap 3 (3-11) BUN 10 (6-23) mg/dl Creatinine 0.89 (0.6-1.2) mg/dl Est Cr Clr Drug Dosing 58.3 ml/min Est GFR ( Amer) 88.8 ml/min Est GFR (Non-Af Amer) 76.6 ml/min BUN/Creatinine Ratio 11.2 (10-20) Glucose 93 (70-99(Fasting)) mg/dl Lactate (0.4-2.0) mmol/L Calcium 7.9 L D (8.6-10.3) mg/dl Phosphorus 3.0 (2.5-4.9) mg/dl Magnesium 1.9 (1.7-2.4) mg/dl Total Bilirubin 0.6 (0.2-1.0) mg/dl AST 14 (13-39) U/L ALT 10 (7-52) U/L Alkaline Phosphatase 52 (34-104) U/L Total Creatine Kinase (26-192) U/L Total Protein 5.7 L (6.0-8.3) gm/dl Albumin 3.4 (3.4-5.0) gm/dl Globulin 2.3 L (2.5-4.0) gm/dl Albumin/Globulin Ratio 1.5 (0.9-2) Urine Color Urine Appearance (Clear) Urine pH (4.5-7.5) Ur Specific [place] (1.000-1.030) Urine Protein (Negative) Urine Glucose (UA) (Negative) Urine Ketones (Negative) Urine Blood (Negative) Urine Nitrite (Negative) Urine Bilirubin (Negative) Urine Urobilinogen (Negative) Ur Leukocyte Esterase (Negative) Urine WBC (Auto) (0-5) /hpf Urine RBC (Auto) (0-4) /hpf U Hyaline Cast (Auto) (0-5) /lpf U Epithel Cells (Auto) (0-5) /lpf Urine Bacteria (Auto) (Negative) Diagnostic Findings NM hepatobiliary CLINICAL HISTORY: RUQ pain TECHNIQUE: Following the intravenous injection of 4.6 mCi of Tc-99m labeled Technetium 99m mebrofenin, multiple images of the upper abdomen were obtained in the anterior projection with uptake measurements of the gallbladder obtained. Once the gallbladder and small bowel were visualized, the patient was intravenously infused over 30 minutes with 0.02 mcg/kg of Sincalide (CCK), and imaging and uptakes were again obtained. Comparison: None available at the time of this dictation. FINDINGS/IMPRESSION: Normal uptake is in the liver and gallbladder. Radiotracer flows into the common bile duct and is present in the small bowel at 90 minutes. KUB CLINICAL HISTORY: Right upper quadrant abdominal pain. FINDINGS: 2 AP, portable, supine abdominal radiographs are compared to study dated 07/12/2014 and correlated with abdominal CT performed the same day 03/27/2023. There is a nonobstructed abdominal bowel gas pattern. No evidence of intraperitoneal free air is seen on these supine images. Excreted IV contrast fills the renal collecting systems. There is also excreted IV contrast in the bladder. Phleboliths are noted in the pelvis. The bony structures appear intact. The lung bases are clear as imaged. IMPRESSION: No acute abnormality is identified.
--- NOTE | 2023-03-31 14:36 | Electrocardiogram Report ---
Test Reason : Blood Pressure : / mmHG Vent. Rate : 071 BPM Atrial Rate : 071 BPM P-R Int : 178 ms QRS Dur : 074 ms QT Int : 374 ms P-R-T Axes : 044 045 055 degrees QTc Int : 406 ms Normal sinus rhythm Normal ECG When compared with ECG of 03-JUL-2008 05:42, No significant change was found Confirmed by Butch Santos ([id number]) on 03/31/2023 2:36:07 PM Referred By: REFERRED SELF Confirmed By:Butch Santos
== END 2023-03-28 15:04 | disposition home or self-care (01) ==
LOC: ED 09:59 → 3N 09:59 → SUATTDRO 14:24 → 3N 18:12

== ENCOUNTER 2023-06-04 00:04 | Inpatient (IN) ==
[2023-06-04] MEDS ORDERED: KETOROLAC TROMETHAMINE 15 MG/ML VIAL IV STA (00:38)
[2023-06-04] MEDS ORDERED: ONDANSETRON INJ 2 MG/ML 2 ML VIAL IV STA ×2 (00:38→03:39)
[2023-06-04 01:02] LABS: Appearance Urine Turbid (Clear); Bacteria Urine Automated 1+ (Negative); Bilirubin Urine Negative (Negative); Blood Urine 3+ (Negative); Color Urine Dark Yellow; Epithelial Cell Urine Auto >30 /lpf (0-5); Glucose Urine UA Negative (Negative); Ketones Urine Trace (Negative); Leukocyte Esterase Urine 3+ (Negative); Nitrite Urine Positive (Negative); Protein Urine 3+ (Negative); Specific Gravity Urine 1.016 (1.000-1.030); Urobilinogen Urine Negative (Negative); WBC Urine Automated >30 /hpf (0-5); pH Urine 6.5 (4.5-7.5)
[2023-06-04 01:08] LABS: Basophils # (auto) 0.14 K/uL (0.00-0.20); Basophils % (auto) 0.8 %; Eosinophils # (auto) 0.23 K/uL (0.00-0.50); Eosinophils % (auto) 1.4 %; Hemoglobin 14.8 g/dl (12.0-16.0); Immature Granulocytes # (auto) 0.07 K/uL (0.01-0.20); Immature Granulocytes % (auto) 0.4 %; Lymphocytes # (auto) 4.11 K/uL (1.20-3.40); Lymphocytes % (auto) 24.3 %; Mean Corpuscular Hemoglobin 34.8 pg (25.0-34.0); Mean Corpuscular Hgb Conc 34.4 g/dL (32.0-36.0); Mean Corpuscular Volume 101.2 fL (80.0-100.0); Mean Platelet Volume 9.2 fL (9.4-12.4); Monocytes # (auto) 1.35 K/uL (0.11-0.59); Neutrophils % (auto) 65.1 %; Platelet Count 417 K/uL (130-400); RDW Coefficient of Variation 12.9 % (11.5-14.5); RDW Standard Deviation 47.8 fL (36.4-46.3); Red Blood Count 4.25 M/uL (4.20-5.40)
[2023-06-04 01:23] LABS: Alanine Aminotransferase 9 U/L (7-52); Albumin Globulin Ratio 1.3 (0.9-2); Albumin Level 4.3 gm/dl (3.4-5.0); Alkaline Phosphatase 64 U/L (34-104); Anion Gap 9 (3-11); Aspartate Aminotransferase 15 U/L (13-39); BUN Creatinine Ratio 14.8 (10-20); Bilirubin,Total 0.4 mg/dl (0.2-1.0); Blood Urea Nitrogen 13 mg/dl (6-23); Calcium 9.5 mg/dl (8.6-10.3); Carbon Dioxide 26 mmol/L (21-32); Chloride 105 mmol/L (98-107); Est GFR (Non-African American) 77.7 ml/min; Globulin 3.4 gm/dl (2.5-4.0); Glucose 117 mg/dl (70-99(Fasting)); Potassium 3.8 mmol/L (3.5-5.1); Sodium 140 mmol/L (136-145); Total Protein 7.7 gm/dl (6.0-8.3)
[2023-06-04 01:43] LABS: RBC Urine Automated >30 /hpf (0-4)
[2023-06-04 01:44] LABS: Cast Urine Automated 0 /lpf (0-5); Mucus Urine Present (None Prsent)
[2023-06-04] MEDS ORDERED: KETOROLAC TROMETHAMINE 15 MG/ML VIAL IV ONE (03:39)
[2023-06-04] MEDS ORDERED: SODIUM CHLORIDE 0.9% 1,000 ML IV ONE (03:39)
[2023-06-04] MEDS ORDERED: cefTRIAXone SODIUM 2,000 MG/50 ML BAG IV STA (03:39)
--- NOTE | 2023-06-04 03:46 | Emergency Department Note ---
History of Present Illness General Chief complaint: Flank Pain Stated complaint: SEVERE PAIN IN RIGHT SIDE Time Seen by Provider: 06/04/23 03:20 Source: patient, RN notes reviewed and old records reviewed (Including a primary care office visit from 05-24-2020) Mode of arrival: ambulatory Limitations: no limitations History of Present Illness Maximum Pain Intensity: 8 This patient is a 47-year-old female who comes in with right abdominal and flank pain. She was diagnosed with UTI yesterday and started on Macrobid she is only had 1 dose. She had dysuria blood and bladder pressure. Today she had severe right flank and abdominal pain. Feels a little bit better at present. She had some nausea and vomiting. No history of kidney stones no trauma no chest pain or shortness of breath except when the pain was really bad she did feel short winded. No numbness or weakness. Home Medications Medication Instructions Recorded Confirmed Type famotidine 20 mg tablet (Pepcid) 20 mg PO DAILY #14 tabs 03/28/23 06/04/23 Rx ondansetron HCl 4 mg tablet 4 mg PO Q8H PRN nausea and 03/28/23 06/04/23 Rx vomiting #20 tabs pantoprazole 40 mg tablet,delayed 40 mg PO DAILY #14 tabs 03/28/23 06/04/23 Rx release nitrofurantoin 100 mg PO BID 06/04/23 06/04/23 History monohydrate/macrocrystals 100 mg capsule cefdinir 300 mg capsule 300 mg PO BID #10 caps 06/05/23 Rx docusate sodium 100 mg capsule 100 mg PO BID PRN Constipation #30 06/05/23 Rx caps phenazopyridine 100 mg tablet 100 mg PO TID PRN pain #14 tabs 06/05/23 Rx polyethylene glycol 3350 17 gram 17 g PO DAILY PRN constipation #14 06/05/23 Rx oral powder packet (Miralax) ea Allergies Allergy/AdvReac Type Severity Reaction Status Date / Time sulfamethoxazole Allergy Severe anaphylaxis Verified 06/04/23 00:53 trimethoprim Allergy Severe anaphylaxis Verified 06/04/23 00:53 bupropion [From Wellbutrin] AdvReac Intermediate blurred Verified 06/04/23 00:53 vision paroxetine [From Paxil] AdvReac Intermediate Unknown Verified 06/04/23 00:53 Past Med/Surg History Medical History Dysfunctional uterine bleeding Insomnia Irregular periods (01/04/13) Acute cystitis Surgical History H/O tooth extraction History of dilatation and curettage History of shoulder surgery History of hysterectomy Family History Mother Heart disease Grandmother (Maternal) Ovarian cancer Uterine cancer Sister Endometriosis Denies family history of Colon cancer Prostate cancer Myocardial infarction Breast cancer Social History Smoking Status: Current every day smoker Tobacco Type: Cigarettes and E-cigarettes / Vaping Age Started Using Tobacco: 12; packs per day: 1; Second Hand Exposure: Yes; Do You Dip or Chew Tobacco: No; Tobacco Cessation Education Requested by Patient: No Hx Alcohol Use: No Hx Substance Use: Yes Last Used Substance: Days (ago) Substance Use Type Other:: medical marijuana Preferred Language: Haitian Communication Ability: Effective Visual Impairment: Partially Limited Hearing Ability: Normal Upholstery Tech Required: No Beliefs That Will Affect Care: None marital status: Current Living Situation: Other Current Living Situation Comment: sister current occupational status: employed current occupation: [employer] Other Information That Helps Us Care for You: No Feels Safe at Home: Yes Safety Concerns: Feels Safe At This Time Childhood Exposure to Second-Hand Smoke: Yes Dental Care, Regularly: Yes Physical Activity Frequency: Daily Seatbelt Use: sometimes Sunscreen Use: No Do you think of yourself as: straight/heterosexual Assistive Devices: None Review of Systems A total of 10 systems reviewed and were otherwise negative Physical Exam Vital Signs Vital Signs - 24 hr 06/04/23 00:25 Temperature 36.5 C Temperature Source Temporal Artery Scan Pulse Rate 94 H Respiratory Rate 24 Blood Pressure 135/88 Blood Pressure Mean 103 Pulse Oximetry 96 Oxygen Delivery Method Room Air Sepsis Recent Fever Within 48 Hours No Sepsis New/Unexplained Change in Mental Status No Sepsis Action Taken by Nursing No Action Required General: Well developed well nourished middle-age female who appears uncomfortable secondary to in no acute distress, breathing comfortably on room air. Normal speech HEENT: Normal cephalic atraumatic. Pupils are equal round and reactive to light. Extraocular movements are intact. Oropharynx is pink with moist mucous membranes. No swelling of the mouth lips or tongue. Neck: Supple with a midline trachea. No meningeal signs or stiffness, no JVD or bruits. No Stridor. Chest: Clear to auscultation bilaterally. No wheezes or rhonchi. No increased work of breathing. Heart: Regular rate and rhythm without murmurs or gallops. Abdomen: Soft moderately tender in the right mid abdomen into the right flank, nondistended without rebound guarding or rigidity. Extremities: No cyanosis clubbing or edema. No calf tenderness or assymetry Spine/Back. Non tender to palpation. He tender in the right flank. No rash. Skin: Good turgor without rashes. Neurologic exam: Cranial nerves two through 12 are intact. Motor and sensation are intact and symmetrical throughout. Course Administered Medications Docusate Sodium (Docusate Sodium 100 Mg Cap) 100 mg PO BID [facility] Stop: 07/05/23 10:59 Last Admin: 06/05/23 11:16 Dose: 100 mg Documented By: RIVAS Enoxaparin Sodium (Enoxaparin Inj 40 Mg/0.4 Ml Syr) 40 mg SQ QAM [facility] Stop: 07/04/23 08:59 Last Admin: 06/05/23 09:40 Dose: Not Given Documented By: Admin: 06/04/23 09:35 Dose: Not Given Documented By: VAUGHN Famotidine (Famotidine 20 Mg Tab) 20 mg PO DAILY [facility] Stop: 07/04/23 08:59 Last Admin: 06/05/23 09:38 Dose: 20 mg Documented By: Admin: 06/04/23 09:35 Dose: 20 mg Documented By: VAUGHN Promethazine HCl 6.25 mg/ (Sodium Chloride) 50.25 mls @ 201 mls/hr IV Q6H PRN PRN Reason: Nausea And Vomiting Stop: 07/04/23 05:41 Last Infusion: 06/04/23 22:41 Dose: Infused Documented By: Admin: 06/04/23 22:02 Dose: 201 mls/hr Documented By: GERBER Ceftriaxone Sodium 2,000 mg/ (Dextrose) 50 mls @ 100 mls/hr IV Q24H [facility]; Protocol Stop: 06/15/23 03:59 Last Infusion: 06/05/23 06:22 Dose: Infused Documented By: Admin: 06/05/23 05:44 Dose: 100 mls/hr Documented By: GERBER Ketorolac Tromethamine (Ketorolac Tromethamine 15 Mg/Ml Vial) 15 mg IV Q6H PRN PRN Reason: Pain Stop: 06/09/23 05:40 Last Admin: 06/04/23 22:02 Dose: 15 mg Documented By: Admin: 06/04/23 13:25 Dose: 15 mg Documented By: VAUGHN Pantoprazole Sodium (Pantoprazole 40 Mg Tab) 40 mg PO DAILY [facility] Stop: 07/04/23 08:59 Last Admin: 06/05/23 09:38 Dose: 40 mg Documented By: Admin: 06/04/23 09:35 Dose: 40 mg Documented By: VAUGHN Phenazopyridine HCl (Phenazopyridine Hcl 200 Mg Tab) 200 mg PO TID PRN PRN Reason: Dysuria Stop: 07/04/23 10:37 Last Admin: 06/04/23 18:39 Dose: 200 mg Documented By: DAMIAN Tramadol HCl (Tramadol Hcl 50 Mg Tablet) 25 - 50 mg PO Q4H PRN PRN Reason: Pain Stop: 07/04/23 05:40 Last Admin: 06/05/23 09:38 Dose: 50 mg Documented By: Admin: 06/04/23 18:20 Dose: 50 mg Documented By: DAMIAN Discontinued Medications Sodium Chloride (Nss) 1,000 mls @ 999 mls/hr IV .Q1H1M ONE Stop: 06/04/23 04:39 Last Infusion: 06/04/23 05:37 Dose: Infused Documented By: Admin: 06/04/23 04:25 Dose: 999 mls/hr Documented By: RANJEET Ceftriaxone Sodium (Rocephin) 2,000 mg in 50 mls @ 100 mls/hr IV NOW STA Stop: 06/04/23 04:08 Last Infusion: 06/04/23 04:58 Dose: Infused Documented By: Admin: 06/04/23 04:25 Dose: 100 mls/hr Documented By: RANJEET Lactated Ringer's (Lr) 1,000 mls @ 100 mls/hr IV .Q10H ONE Stop: 06/04/23 15:05 Last Infusion: 06/04/23 09:35 Dose: Infused Documented By: Admin: 06/04/23 06:21 Dose: 100 mls/hr Documented By: RANJEET Sodium Chloride (Nss) 1,000 mls @ 125 mls/hr IV .Q8H [facility] Stop: 06/05/23 00:14 Last Infusion: 06/05/23 01:21 Dose: Infused Documented By: Admin: 06/04/23 17:14 Dose: 125 mls/hr Documented By: Infusion: 06/04/23 17:12 Dose: Infused Documented By: Admin: 06/04/23 09:35 Dose: 125 mls/hr Documented By: VAUGHN Ketorolac Tromethamine (Ketorolac Tromethamine 15 Mg/Ml Vial) 15 mg IV ONE STA Stop: 06/04/23 00:39 Last Admin: 06/04/23 00:43 Dose: 15 mg Documented By: RANJEET Ketorolac Tromethamine (Ketorolac Tromethamine 15 Mg/Ml Vial) 10 mg IV NOW ONE Stop: 06/04/23 03:40 Last Admin: 06/04/23 04:00 Dose: 10 mg Documented By: RANJEET Ondansetron HCl (Ondansetron Inj 2 Mg/Ml 2 Ml Vial) 4 mg IV NOW STA Stop: 06/04/23 00:39 Last Admin: 06/04/23 00:43 Dose: 4 mg Documented By: RANJEET Ondansetron HCl (Ondansetron Inj 2 Mg/Ml 2 Ml Vial) 4 mg IV NOW STA Stop: 06/04/23 03:40 Last Admin: 06/04/23 04:07 Dose: Not Given Documented By: RANJEET Polyethylene Glycol (Polyethylene (Miralax) 17 Gm Pack) 17 gm PO ONE ONE Stop: 06/05/23 10:43 Last Admin: 06/05/23 11:16 Dose: 17 gm Documented By: RIVAS Medical Decision Making Differential Diagnosis Kidney infection, kidney stone, intra-abdominal process, sepsis, electrolyte or metabolic abnormality Medical Records Attestation: I reviewed the patient's medical records. Home Medications Current Medication List: was personally reviewed by me Laboratory Data Attestation: I reviewed the patient's lab results. 06/05/23 07:39 06/05/23 07:39 Lab Results 06/04/23 06/04/23 06/04/23 Range/Units 00:30 00:52 03:50 WBC 16.90 H (4.8-10.8) K/ul RBC 4.25 (4.20-5.40) M/uL Hgb 14.8 (12.0-16.0) g/dl Hct 43.0 (37.0-47.0) % MCV 101.2 H (80.0-100.0) fL MCH 34.8 H (25.0-34.0) pg MCHC 34.4 (32.0-36.0) g/dL RDW Std Deviation 47.8 H (36.4-46.3) fL RDW Coeff of Viola 12.9 (11.5-14.5) % Plt Count 417 H (130-400) K/uL MPV 9.2 L (9.4-12.4) fL Immature Gran % (Auto) 0.4 % Neut % (Auto) 65.1 % Lymph % (Auto) 24.3 % [place] % (Auto) 8.0 % Eos % (Auto) 1.4 % Baso % (Auto) 0.8 % Neut # (Auto) 11.00 H (1.40-6.50) K/uL Lymph # (Auto) 4.11 H (1.20-3.40) K/uL [place] # (Auto) 1.35 H (0.11-0.59) K/uL Eos # (Auto) 0.23 (0.00-0.50) K/uL Baso # (Auto) 0.14 (0.00-0.20) K/uL Immature Gran # (Auto) 0.07 (0.01-0.20) K/uL Sodium 140 (136-145) mmol/L Potassium 3.8 (3.5-5.1) mmol/L Chloride 105 (98-107) mmol/L Carbon Dioxide 26 (21-32) mmol/L Anion Gap 9 (3-11) BUN 13 (6-23) mg/dl Creatinine 0.88 (0.6-1.2) mg/dl Est Cr Clr Drug Dosing Not Reportable Est GFR ( Amer) 90.0 ml/min Est GFR (Non-Af Amer) 77.7 ml/min BUN/Creatinine Ratio 14.8 (10-20) Glucose 117 H (70-99(Fasting)) mg/dl Estimat Average Glucose 120 mg/dl Hemoglobin A1c 5.8 H (4.5-5.6) % Lactate 0.8 (0.4-2.0) mmol/L Calcium 9.5 (8.6-10.3) mg/dl Magnesium (1.7-2.4) mg/dl Total Bilirubin 0.4 (0.2-1.0) mg/dl AST 15 (13-39) U/L ALT 9 (7-52) U/L Alkaline Phosphatase 64 (34-104) U/L Total Protein 7.7 (6.0-8.3) gm/dl Albumin 4.3 (3.4-5.0) gm/dl Globulin 3.4 (2.5-4.0) gm/dl Albumin/Globulin Ratio 1.3 (0.9-2) HCG, Qual Negative (Negative) Urine Color Dark Yellow Urine Appearance Turbid A (Clear) Urine pH 6.5 (4.5-7.5) Ur Specific [place] 1.016 (1.000-1.030) Urine Protein 3+ H (Negative) Urine Glucose (UA) Negative (Negative) Urine Ketones Trace H (Negative) Urine Blood 3+ H (Negative) Urine Nitrite Positive A (Negative) Urine Bilirubin Negative (Negative) Urine Urobilinogen Negative (Negative) Ur Leukocyte Esterase 3+ H (Negative) Urine WBC (Auto) >30 H (0-5) /hpf Urine RBC (Auto) >30 H (0-4) /hpf U Hyaline Cast (Auto) 0 (0-5) /lpf U Epithel Cells (Auto) >30 H (0-5) /lpf Urine Bacteria (Auto) 1+ H (Negative) Urine Mucus Present A (None Prsent) Urine Yeast Not Reportable 06/04/23 Range/Units 05:35 WBC (4.8-10.8) K/ul RBC (4.20-5.40) M/uL Hgb (12.0-16.0) g/dl Hct (37.0-47.0) % MCV (80.0-100.0) fL MCH (25.0-34.0) pg MCHC (32.0-36.0) g/dL RDW Std Deviation (36.4-46.3) fL RDW Coeff of Viola (11.5-14.5) % Plt Count (130-400) K/uL MPV (9.4-12.4) fL Immature Gran % (Auto) % Neut % (Auto) % Lymph % (Auto) % [place] % (Auto) % Eos % (Auto) % Baso % (Auto) % Neut # (Auto) (1.40-6.50) K/uL Lymph # (Auto) (1.20-3.40) K/uL [place] # (Auto) (0.11-0.59) K/uL Eos # (Auto) (0.00-0.50) K/uL Baso # (Auto) (0.00-0.20) K/uL Immature Gran # (Auto) (0.01-0.20) K/uL Sodium (136-145) mmol/L Potassium (3.5-5.1) mmol/L Chloride (98-107) mmol/L Carbon Dioxide (21-32) mmol/L Anion Gap (3-11) BUN (6-23) mg/dl Creatinine (0.6-1.2) mg/dl Est Cr Clr Drug Dosing Est GFR ( Amer) ml/min Est GFR (Non-Af Amer) ml/min BUN/Creatinine Ratio (10-20) Glucose (70-99(Fasting)) mg/dl Estimat Average Glucose mg/dl Hemoglobin A1c (4.5-5.6) % Lactate (0.4-2.0) mmol/L Calcium (8.6-10.3) mg/dl Magnesium 1.9 (1.7-2.4) mg/dl Total Bilirubin (0.2-1.0) mg/dl AST (13-39) U/L ALT (7-52) U/L Alkaline Phosphatase (34-104) U/L Total Protein (6.0-8.3) gm/dl Albumin (3.4-5.0) gm/dl Globulin (2.5-4.0) gm/dl Albumin/Globulin Ratio (0.9-2) HCG, Qual (Negative) Urine Color Urine Appearance (Clear) Urine pH (4.5-7.5) Ur Specific [place] (1.000-1.030) Urine Protein (Negative) Urine Glucose (UA) (Negative) Urine Ketones (Negative) Urine Blood (Negative) Urine Nitrite (Negative) Urine Bilirubin (Negative) Urine Urobilinogen (Negative) Ur Leukocyte Esterase (Negative) Urine WBC (Auto) (0-5) /hpf Urine RBC (Auto) (0-4) /hpf U Hyaline Cast (Auto) (0-5) /lpf U Epithel Cells (Auto) (0-5) /lpf Urine Bacteria (Auto) (Negative) Urine Mucus (None Prsent) Urine Yeast Imaging Data Attestation: I personally reviewed and interpreted this imaging study as follows: My Impression: CT of the abdomen and pelvisI do not see any definite obstructive uropathy or free air. MDM Narrative This patient comes in as scribed above. She had orders done prior to me evaluating her. It her urinalysis does look infected is a white count of 16 she is tender in the right abdomen and flank and concern if she may have pyelonephritis I did add cultures and lactic acid I ordered no IV normal saline bolus as well as Rocephin 2 g IV. She reports no allergies to antibiotics with exception of Bactrim. She has no significant electrolyte or metabolic abnormalities. CAT scan results were obtained and show no definite obstructive uropathy or any other acute abnormality. She did receive IV fluid resuscitation as well as Toradol 10 mg IV and Zofran 4 mg IV with these measures, she appears more comfortable but still is uncomfortable. I am concerned that she does have a pyelonephritis. She has a high white count and her urine looks infected. I do think she needs to be admitted/observed for IV antibiotics , IV hydration ,and further treatment and evaluation. I have discussed the case at length and consultation with Dr. Cantu and the [facility] team will admit/observe her for these measures. Continuous cardiac monitoring: Orders placed in EMR for continuous night monitor: Upon my evaluation patient noted be in sinus bradycardia with a rate of 55 Impression & Plan Acute pyelonephritis, Abdominal pain, Not currently , Acute right flank pain Discharge Plan Visit Data Chief Complaint: Flank Pain Stated Complaint: SEVERE PAIN IN RIGHT SIDE ED Provider: Jose Hernandez Discharge Problem: Acute pyelonephritis, Abdominal pain, Not currently , Acute right flank pain Patient Disposition: Admitted As Inpatient Discharge Instructions Interventions: ED Discharge Assessment Last Done: 06/04/23 16:40 Discharge Problem: Abdominal pain Qualifiers: Abdominal location: right lower quadrant Qualified Code(s): R10.31 - Right lower quadrant pain
--- NOTE | 2023-06-04 04:00 | CT Scan Report ---
Exam(s): CT ABDOMEN + PELVIS Without Contrast EXAM: CT Abdomen and Pelvis Without Intravenous Contrast CLINICAL HISTORY: Reason for exam: flank pain, uti symptoms. TECHNIQUE: Axial computed tomography images of the abdomen and pelvis without intravenous contrast. CTDI is 9 mGy and DLP is 400.18 mGy-cm. Automated exposure control was utilized for the study. A dose lowering technique was utilized adhering to the principles of ALARA. COMPARISON: Comparison is made to prior exam dated 03/27/2023 FINDINGS: Limitations: Exam limited without oral and IV contrast. Lung bases: Unremarkable. No mass. No consolidation. ABDOMEN: Liver: Unremarkable. Gallbladder and bile ducts: Cholelithiasis without CT evidence to suggest acute cholecystitis. No ductal dilation. Pancreas: Unremarkable. No ductal dilation. Spleen: Unremarkable. No splenomegaly. Adrenals: Unremarkable. No mass. Kidneys and ureters: Unremarkable. No obstructing stones. No hydronephrosis. Stomach and bowel: Unremarkable. No obstruction. No mucosal thickening. PELVIS: Appendix: The appendix is not clearly visualized on this exam there is no CT evidence to suggest acute appendicitis. Bladder: Unremarkable. No stones. Reproductive: Uterus is surgically absent. ABDOMEN and PELVIS: Intraperitoneal space: Unremarkable. No free air. No significant fluid collection. Bones/joints: No acute fracture. No dislocation. Soft tissues: Unremarkable. Vasculature: Unremarkable. No abdominal aortic aneurysm. Lymph nodes: Unremarkable. No enlarged lymph nodes. IMPRESSION: No acute findings in the abdomen or pelvis. Electronically signed by: Salvatore Reich MD 06/04/23 04:00 AM
[2023-06-04] MEDS ORDERED: LACTATED RINGER'S 1,000 ML IV ONE (05:06)
[2023-06-04 05:16] LABS: Pregnancy Test, Serum Negative (Negative)
--- NOTE | 2023-06-04 05:39 | History & Physical Report ---
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 Lovenox subcu Full code Text document was generated using [employer] voice recognition software. It may contain grammatical or spelling errors. Kindly contact undersigned for clarification of any documentation item in question. History of Present Illness Chief Complaint: Right-sided abdominal/flank pain Primary Care Provider: Dr. Puri History obtained from patient and records. Medical history significant for GERD, migraine, anxiety/mood disorder, ongoing tobacco use Last confinement 2 months ago for abdominal pain attributed to gastritis/PUD. Patient discharged on PPI Rx. 3 days ago, patient noted dysuria symptoms without fever or chills. No hematuria, minimal lower abdominal discomfort. Patient seen at PCP's office 2 days ago. Macrobid prescription given for possible cystitis. UA collected and still pending. Worsening discomfort at home going to her right flank causing her to be short of breath from pain. Patient consulted ER. IV ceftriaxone administered at the ER. Medical History as above Surgical History : Dental surgery, D&C, BTL, partial hysterectomy, right oophorectomy Family History : Uterine cancer, DM, heart disease Personal/Social history : 1 pack daily, no EtOH intake, hairstylist Allergies Allergy/AdvReac Type Severity Reaction Status Date / Time sulfamethoxazole Allergy Severe anaphylaxis Verified 06/04/23 00:53 trimethoprim Allergy Severe anaphylaxis Verified 06/04/23 00:53 bupropion [From Wellbutrin] AdvReac Intermediate blurred Verified 06/04/23 00:53 vision paroxetine [From Paxil] AdvReac Intermediate Unknown Verified 06/04/23 00:53 Home Medications Medication Instructions Recorded Confirmed Type famotidine 20 mg tablet (Pepcid) 20 mg PO DAILY #14 tabs 03/28/23 06/04/23 Rx ondansetron HCl 4 mg tablet 4 mg PO Q8H PRN nausea and 03/28/23 06/04/23 Rx vomiting #20 tabs pantoprazole 40 mg tablet,delayed 40 mg PO DAILY #14 tabs 03/28/23 06/04/23 Rx release nitrofurantoin 100 mg PO BID 06/04/23 06/04/23 History monohydrate/macrocrystals 100 mg capsule Past Med/Surg History Medical History Dysfunctional uterine bleeding Insomnia Irregular periods (01/04/13) Acute cystitis Surgical History H/O tooth extraction History of dilatation and curettage History of shoulder surgery History of hysterectomy Family History Mother Heart disease Grandmother (Maternal) Ovarian cancer Uterine cancer Sister Endometriosis Denies family history of Colon cancer Prostate cancer Myocardial infarction Breast cancer Social History Smoking Status: Current every day smoker Tobacco Type: Cigarettes and E-cigarettes / Vaping Age Started Using Tobacco: 12; packs per day: 1; Second Hand Exposure: Yes; Do You Dip or Chew Tobacco: No; Hx Alcohol Use: No Hx Substance Use: Yes Last Used Substance: Days (ago) Last Used Substance Other:: 3 yrs ago Substance Use Type Other:: medical marijuana Preferred Language: Polish Communication Ability: Effective Visual Impairment: Partially Limited Hearing Ability: Normal 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 Beliefs That Will Affect Care: None marital status: Current Living Situation: Other Current Living Situation Comment: sister current occupational status: employed current occupation: [employer] Feels Safe at Home: Yes Childhood Exposure to Second-Hand Smoke: Yes Dental Care, Regularly: Yes Physical Activity Frequency: Daily Seatbelt Use: sometimes Sunscreen Use: No Do you think of yourself as: straight/heterosexual Assistive Devices: None Review of Systems Review of Systems: As per HPI, all other systems reviewed and negative Physical Exam Physical Exam: GENERAL: Slightly uncomfortable, no respiratory distress SKIN: Normal color, warm HEENT: [place] palpebral conjunctivae, no ptosis, dry buccal mucosa NECK : Supple, no tenderness CHEST : CTA, no tenderness HEART : Bradycardic, no obvious murmurs ABDOMEN: Some distention, right-sided flank tenderness EXTREMITIES : No LE swelling/tenderness, no other conspicuous deformities noted NEUROLOGIC : Coherent, no facial asymmetry, no other gross focality Results & Data Results & Data Vital Signs (Past 12 Hours) Vital Signs Temp Pulse Pulse Resp BP BP Pulse Ox 06/04/23 05:20 36.6 C 06/04/23 04:02 57 L 20 110/67 97 06/04/23 00:25 36.5 C 94 H 24 135/88 96 O2 Del Method 06/04/23 05:20 06/04/23 04:02 Room Air 06/04/23 00:25 Room Air Laboratory Results Laboratory Results WBC 16.90 K/ul (4.8-10.8) H 06/04/23 00:30 RBC 4.25 M/uL (4.20-5.40) 06/04/23 00:30 Hgb 14.8 g/dl (12.0-16.0) 06/04/23 00:30 Hct 43.0 % (37.0-47.0) 06/04/23 00:30 MCV 101.2 fL (80.0-100.0) H 06/04/23 00:30 MCH 34.8 pg (25.0-34.0) H 06/04/23 00:30 MCHC 34.4 g/dL (32.0-36.0) 06/04/23 00:30 RDW Std Deviation 47.8 fL (36.4-46.3) H 06/04/23 00:30 RDW Coeff of Viola 12.9 % (11.5-14.5) 06/04/23 00:30 Plt Count 417 K/uL (130-400) H 06/04/23 00:30 MPV 9.2 fL (9.4-12.4) L 06/04/23 00:30 Immature Gran % (Auto) 0.4 % 06/04/23 00:30 Neut % (Auto) 65.1 % 06/04/23 00:30 Lymph % (Auto) 24.3 % 06/04/23 00:30 [place] % (Auto) 8.0 % 06/04/23 00:30 Eos % (Auto) 1.4 % 06/04/23 00:30 Baso % (Auto) 0.8 % 06/04/23 00:30 Neut # (Auto) 11.00 K/uL (1.40-6.50) H 06/04/23 00:30 Lymph # (Auto) 4.11 K/uL (1.20-3.40) H 06/04/23 00:30 [place] # (Auto) 1.35 K/uL (0.11-0.59) H 06/04/23 00:30 Eos # (Auto) 0.23 K/uL (0.00-0.50) 06/04/23 00:30 Baso # (Auto) 0.14 K/uL (0.00-0.20) 06/04/23 00:30 Immature Gran # (Auto) 0.07 K/uL (0.01-0.20) 06/04/23 00:30 Sodium 140 mmol/L (136-145) 06/04/23 00:30 Potassium 3.8 mmol/L (3.5-5.1) 06/04/23 00:30 Chloride 105 mmol/L (98-107) 06/04/23 00:30 Carbon Dioxide 26 mmol/L (21-32) 06/04/23 00:30 Anion Gap 9 (3-11) 06/04/23 00:30 BUN 13 mg/dl (6-23) 06/04/23 00:30 Creatinine 0.88 mg/dl (0.6-1.2) 06/04/23 00:30 Est Cr Clr Drug Dosing Not Reportable 06/04/23 00:30 Est GFR ( Amer) 90.0 ml/min 06/04/23 00:30 Est GFR (Non-Af Amer) 77.7 ml/min 06/04/23 00:30 BUN/Creatinine Ratio 14.8 (10-20) 06/04/23 00:30 Glucose 117 mg/dl (70-99(Fasting)) H 06/04/23 00:30 Lactate 0.8 mmol/L (0.4-2.0) 06/04/23 03:50 Calcium 9.5 mg/dl (8.6-10.3) 06/04/23 00:30 Total Bilirubin 0.4 mg/dl (0.2-1.0) 06/04/23 00:30 AST 15 U/L (13-39) 06/04/23 00:30 ALT 9 U/L (7-52) 06/04/23 00:30 Alkaline Phosphatase 64 U/L (34-104) 06/04/23 00:30 Total Protein 7.7 gm/dl (6.0-8.3) 06/04/23 00:30 Albumin 4.3 gm/dl (3.4-5.0) 06/04/23 00:30 Globulin 3.4 gm/dl (2.5-4.0) 06/04/23 00:30 Albumin/Globulin Ratio 1.3 (0.9-2) 06/04/23 00:30 HCG, Qual Negative (Negative) 06/04/23 00:30 Urine Color Dark Yellow 06/04/23 00:52 Urine Appearance Turbid (Clear) A 06/04/23 00:52 Urine pH 6.5 (4.5-7.5) 06/04/23 00:52 Ur Specific [place] 1.016 (1.000-1.030) 06/04/23 00:52 Urine Protein 3+ (Negative) H 06/04/23 00:52 Urine Glucose (UA) Negative (Negative) 06/04/23 00:52 Urine Ketones Trace (Negative) H 06/04/23 00:52 Urine Blood 3+ (Negative) H 06/04/23 00:52 Urine Nitrite Positive (Negative) A 06/04/23 00:52 Urine Bilirubin Negative (Negative) 06/04/23 00:52 Urine Urobilinogen Negative (Negative) 06/04/23 00:52 Ur Leukocyte Esterase 3+ (Negative) H 06/04/23 00:52 Urine WBC (Auto) >30 /hpf (0-5) H 06/04/23 00:52 Urine RBC (Auto) >30 /hpf (0-4) H 06/04/23 00:52 U Hyaline Cast (Auto) 0 /lpf (0-5) 06/04/23 00:52 U Epithel Cells (Auto) >30 /lpf (0-5) H 06/04/23 00:52 Urine Bacteria (Auto) 1+ (Negative) H 06/04/23 00:52 Urine Mucus Present (None Prsent) A 06/04/23 00:52 Urine Yeast Not Reportable 06/04/23 00:52 Impressions Abdomen/Pelvis CT 06/04/23 01:45 Exam(s): CT ABDOMEN + PELVIS Without Contrast EXAM: CT Abdomen and Pelvis Without Intravenous Contrast CLINICAL HISTORY: Reason for exam: flank pain, uti symptoms. TECHNIQUE: Axial computed tomography images of the abdomen and pelvis without intravenous contrast. CTDI is 9 mGy and DLP is 400.18 mGy-cm. Automated exposure control was utilized for the study. A dose lowering technique was utilized adhering to the principles of ALARA. COMPARISON: Comparison is made to prior exam dated 03/27/2023 FINDINGS: Limitations: Exam limited without oral and IV contrast. Lung bases: Unremarkable. No mass. No consolidation. ABDOMEN: Liver: Unremarkable. Gallbladder and bile ducts: Cholelithiasis without CT evidence to suggest acute cholecystitis. No ductal dilation. Pancreas: Unremarkable. No ductal dilation. Spleen: Unremarkable. No splenomegaly. Adrenals: Unremarkable. No mass. Kidneys and ureters: Unremarkable. No obstructing stones. No hydronephrosis. Stomach and bowel: Unremarkable. No obstruction. No mucosal thickening. PELVIS: Appendix: The appendix is not clearly visualized on this exam there is no CT evidence to suggest acute appendicitis. Bladder: Unremarkable. No stones. Reproductive: Uterus is surgically absent. ABDOMEN and PELVIS: Intraperitoneal space: Unremarkable. No free air. No significant fluid collection. Bones/joints: No acute fracture. No dislocation. Soft tissues: Unremarkable. Vasculature: Unremarkable. No abdominal aortic aneurysm. Lymph nodes: Unremarkable. No enlarged lymph nodes. IMPRESSION: No acute findings in the abdomen or pelvis. Electronically signed by: Salvatore Reich MD 06/04/23 04:00 AM
[2023-06-04] MEDS ORDERED: LORazepam 0.5 MG TAB PO PRN (05:41)
[2023-06-04] MEDS ORDERED: ACETAMINOPHEN 325 MG TAB PO PRN (05:41)
[2023-06-04] MEDS ORDERED: PROMETHAZINE HCL 6.25 MG in SODIUM CHLORIDE 0.9% 50 ML IV PRN (05:42)
[2023-06-04 07:52] LABS: Estimated Average Glucose 120 mg/dl; Hemoglobin A1C 5.8 % (4.5-5.6)
[2023-06-04] MEDS: PANTOprazole 40 MG TAB PO SCH (09:35)
[2023-06-04] MEDS: FAMOTIDINE 20 MG TAB PO SCH (09:35)
[2023-06-04] MEDS: ENOXAPARIN INJ 40 MG/0.4 ML SYR SQ SCH (09:35)
[2023-06-04] MEDS: SODIUM CHLORIDE 0.9% 1,000 ML IV SCH ×2 (09:35→17:14)
[2023-06-04] MEDS ORDERED: PHENAZOPYRIDINE HCL 200 MG TAB PO PRN (10:38)
[2023-06-04] MEDS ORDERED: POLYETHYLENE (MIRALAX) 17 GM PACK PO PRN (10:38)
[2023-06-04] MEDS: KETOROLAC TROMETHAMINE 15 MG/ML VIAL IV PRN ×2 (13:25→22:02)
--- NOTE | 2023-06-04 14:27 | Hospitalist Progress Note ---
Date of Service June 04, 2023 Assessment & Plan (1) Complicated UTI (urinary tract infection): Plan: Complicated urinary tract infection Failed outpatient treatment --CT ABD:No acute findings in the abdomen or pelvis. 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 DVT Px: Lovenox SQ Code Status Full code Admission and Anticipated Discharge Date Admission Date: June 04, 2023 Subjective Patient is seen and examined at bedside States having dysuria associated with right flank pain Unsure if she noticed any hematuria Denies any chest pain, dyspnea, dizziness, nausea, vomiting Tolerated clear liquid diet No other complaints Review of Systems Review of Systems: All systems reviewed & are unremarkable except as noted in Subjective Physical Exam Physical Exam: Physical Exam: Vitals signs as noted above General Appearance:Moderately built and nourished, no apparent distress Head: normocephalic, Atraumatic Eyes: normal inspection, EOMI Neck: supple, Trachea midline Respiratory/Chest: Normal breath sounds, CTA, No accessory muscle use Cardiovascular: S1, S2, No murmur Abdomen/GI:Soft, R flank/RLE mild tender, Bowel sounds present Extremities/Musculoskeletal:normal inspection, no edema Neurologic/Psych:AAOX3, grossly no focal neurological deficits Skin: normal color, warm Results & Data Results & Data Vital Signs (Past 12 Hours) Vital Signs Temp Pulse Resp BP Pulse Ox O2 Del Method 06/04/23 09:00 66 18 110/63 99 Room Air 06/04/23 09:00 64 18 110/63 98 Room Air 06/04/23 06:23 67 16 92/56 L 96 Room Air 06/04/23 05:20 36.6 C 06/04/23 04:02 57 L 20 110/67 97 Room Air Laboratory Results Short CBC 06/04/23 Range/Units 00:30 WBC 16.90 H (4.8-10.8) K/ul Hgb 14.8 (12.0-16.0) g/dl Hct 43.0 (37.0-47.0) % Plt Count 417 H (130-400) K/uL BMP 06/04/23 00:30 Sodium 140 Potassium 3.8 Chloride 105 Carbon Dioxide 26 BUN 13 Creatinine 0.88 Glucose 117 H Calcium 9.5 Liver Function 06/04/23 Range/Units 00:30 Total Bilirubin 0.4 (0.2-1.0) mg/dl AST 15 (13-39) U/L ALT 9 (7-52) U/L Alkaline Phosphatase 64 (34-104) U/L Albumin 4.3 (3.4-5.0) gm/dl Urine 06/04/23 Range/Units 00:52 Urine Color Dark Yellow Urine Appearance Turbid A (Clear) Urine pH 6.5 (4.5-7.5) Ur Specific [place] 1.016 (1.000-1.030) Urine Protein 3+ H (Negative) Urine Glucose (UA) Negative (Negative)
[2023-06-04] MEDS: traMADol HCL 50 MG TABLET PO PRN (18:20)
[2023-06-05] MEDS ORDERED: cefTRIAXone SODIUM 2,000 MG in DEXTROSE 5 % MINI-B 50 ML IV SCH (04:00)
[2023-06-05 07:25] VITALS: PULSE 55; TEMP 97.7
[2023-06-05 08:03] LABS: Basophils # (auto) 0.05 K/uL (0.00-0.20); Basophils % (auto) 0.6 %; Eosinophils # (auto) 0.13 K/uL (0.00-0.50); Eosinophils % (auto) 1.6 %; Hematocrit (blood only) 36.5 % (37.0-47.0); Hemoglobin 12.4 g/dl (12.0-16.0); Immature Granulocytes # (auto) 0.02 K/uL (0.01-0.20); Immature Granulocytes % (auto) 0.2 %; Lymphocytes # (auto) 3.82 K/uL (1.20-3.40); Lymphocytes % (auto) 46.5 %; Mean Corpuscular Volume 103.1 fL (80.0-100.0); Mean Platelet Volume 9.1 fL (9.4-12.4); Monocytes # (auto) 0.71 K/uL (0.11-0.59); Monocytes % (auto) 8.6 %; Neutrophils # (auto) 3.48 K/uL (1.40-6.50); Neutrophils % (auto) 42.5 %; Platelet Count 310 K/uL (130-400); RDW Coefficient of Variation 12.9 % (11.5-14.5); RDW Standard Deviation 49.6 fL (36.4-46.3); Red Blood Count 3.54 M/uL (4.20-5.40); White Blood Count 8.21 K/ul (4.8-10.8)
[2023-06-05 08:19] LABS: BUN Creatinine Ratio 14.8 (10-20); Calcium 8.7 mg/dl (8.6-10.3); Creatinine Clr Calc Pharmacy 69.6 ml/min; Est GFR (African American) 99.5 ml/min; Est GFR (Non-African American) 85.9 ml/min; Magnesium 2.1 mg/dl (1.7-2.4); Potassium 3.9 mmol/L (3.5-5.1)
[2023-06-05] MEDS: PANTOprazole 40 MG TAB PO SCH (09:38)
[2023-06-05] MEDS: traMADol HCL 50 MG TABLET PO PRN (09:38)
[2023-06-05] MEDS: FAMOTIDINE 20 MG TAB PO SCH (09:38)
[2023-06-05] MEDS: ENOXAPARIN INJ 40 MG/0.4 ML SYR SQ SCH (09:40)
[2023-06-05] MEDS ORDERED: POLYETHYLENE (MIRALAX) 17 GM PACK PO ONE (10:42)
[2023-06-05 10:59] VITALS: BP 131/80; RESP 57; O2SAT 99
[2023-06-05] MEDS ORDERED: DOCUSATE SODIUM 100 MG CAP PO SCH (11:00)
--- NOTE | 2023-06-05 12:04 | Hospitalist Progress Note ---
Date of Service June 05, 2023 Assessment & Plan (1) Complicated UTI (urinary tract infection): Plan: Complicated urinary tract infection Failed outpatient treatment --CT ABD:No acute findings in the abdomen or pelvis. --Outpatient urine culture from 06/03/2023 grew pansensitive E. coli --Blood cultures negative to date Repeat urine culture noncontributory Received IV fluids Continue IV Rocephin Pyridium as needed Transition to p.o. 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 DVT Px: Lovenox SQ Code Status Full code Disposition Home Admission and Anticipated Discharge Date Admission Date: June 04, 2023 Subjective Patient is seen and examined at bedside States feeling much better today Right flank pain improved Still has some bladder pressure with urination Denies any chest pain, dyspnea, dizziness, nausea, vomiting Eager to get discharged Review of Systems Review of Systems: All systems reviewed & are unremarkable except as noted in Subjective Physical Exam Physical Exam: Physical Exam: Vitals signs as noted above General Appearance:Moderately built and nourished, no apparent distress Head: normocephalic, Atraumatic Eyes: normal inspection, EOMI Neck: supple, Trachea midline Respiratory/Chest: Normal breath sounds, CTA, No accessory muscle use Cardiovascular: S1, S2, No murmur Abdomen/GI:Soft, non tender, Bowel sounds present Extremities/Musculoskeletal:normal inspection, no edema Neurologic/Psych:AAOX3, grossly no focal neurological deficits Skin: normal color, warm Results & Data Results & Data Vital Signs (Past 12 Hours) Vital Signs Temp Pulse Resp BP Pulse Ox O2 Del Method 06/05/23 10:56 36.5 C 55 L 57 H 131/80 99 Room Air 06/05/23 07:23 36.5 C 55 L 14 121/76 98 Room Air Laboratory Results Short CBC 06/05/23 Range/Units 07:39 WBC 8.21 (4.8-10.8) K/ul Hgb 12.4 (12.0-16.0) g/dl Hct 36.5 L (37.0-47.0) % Plt Count 310 (130-400) K/uL BMP 06/05/23 07:39 Sodium 143 Potassium 3.9 Chloride 110 H Carbon Dioxide 30 BUN 12 Creatinine 0.81 Glucose 99 Calcium 8.7
--- NOTE | 2023-06-05 12:15 | Discharge Summary ---
Date of Service June 05, 2023 Admission HPI Per Admitting Provider History obtained from patient and records. Medical history significant for GERD, migraine, anxiety/mood disorder, ongoing tobacco use Last confinement 2 months ago for abdominal pain attributed to gastritis/PUD. Patient discharged on PPI Rx. 3 days ago, patient noted dysuria symptoms without fever or chills. No hematuria, minimal lower abdominal discomfort. Patient seen at PCP's office 2 days ago. Macrobid prescription given for possible cystitis. UA collected and still pending. Worsening discomfort at home going to her right flank causing her to be short of breath from pain. Patient consulted ER. IV ceftriaxone administered at the ER. Medical History as above Surgical History : Dental surgery, D&C, BTL, partial hysterectomy, right oophorectomy Family History : Uterine cancer, DM, heart disease Personal/Social history : 1 pack daily, no EtOH intake, hairstylist Principal Diagnosis Complicated urinary tract infection Discharge Data Allergies Allergy/AdvReac Type Severity Reaction Status Date / Time sulfamethoxazole Allergy Severe anaphylaxis Verified 06/04/23 00:53 trimethoprim Allergy Severe anaphylaxis Verified 06/04/23 00:53 bupropion [From Wellbutrin] AdvReac Intermediate blurred Verified 06/04/23 00:53 vision paroxetine [From Paxil] AdvReac Intermediate Unknown Verified 06/04/23 00:53 Consultations 06/04/23 05:03 ED Decision to Admit Stat Procedures Performed Laboratory Results WBC 8.21 K/ul (4.8-10.8) 06/05/23 07:39 RBC 3.54 M/uL (4.20-5.40) L 06/05/23 07:39 Hgb 12.4 g/dl (12.0-16.0) 06/05/23 07:39 Hct 36.5 % (37.0-47.0) L 06/05/23 07:39 MCV 103.1 fL (80.0-100.0) H 06/05/23 07:39 MCH 35.0 pg (25.0-34.0) H 06/05/23 07:39 MCHC 34.0 g/dL (32.0-36.0) 06/05/23 07:39 RDW Std Deviation 49.6 fL (36.4-46.3) H 06/05/23 07:39 RDW Coeff of Viola 12.9 % (11.5-14.5) 06/05/23 07:39 Plt Count 310 K/uL (130-400) 06/05/23 07:39 MPV 9.1 fL (9.4-12.4) L 06/05/23 07:39 Immature Gran % (Auto) 0.2 % 06/05/23 07:39 Neut % (Auto) 42.5 % 06/05/23 07:39 Lymph % (Auto) 46.5 % 06/05/23 07:39 [place] % (Auto) 8.6 % 06/05/23 07:39 Eos % (Auto) 1.6 % 06/05/23 07:39 Baso % (Auto) 0.6 % 06/05/23 07:39 Neut # (Auto) 3.48 K/uL (1.40-6.50) 06/05/23 07:39 Lymph # (Auto) 3.82 K/uL (1.20-3.40) H 06/05/23 07:39 [place] # (Auto) 0.71 K/uL (0.11-0.59) H 06/05/23 07:39 Eos # (Auto) 0.13 K/uL (0.00-0.50) 06/05/23 07:39 Baso # (Auto) 0.05 K/uL (0.00-0.20) 06/05/23 07:39 Immature Gran # (Auto) 0.02 K/uL (0.01-0.20) 06/05/23 07:39 Sodium 143 mmol/L (136-145) 06/05/23 07:39 Potassium 3.9 mmol/L (3.5-5.1) 06/05/23 07:39 Chloride 110 mmol/L (98-107) H 06/05/23 07:39 Carbon Dioxide 30 mmol/L (21-32) 06/05/23 07:39 Anion Gap 3 (3-11) 06/05/23 07:39 BUN 12 mg/dl (6-23) 06/05/23 07:39 Creatinine 0.81 mg/dl (0.6-1.2) 06/05/23 07:39 Est Cr Clr Drug Dosing 69.6 ml/min 06/05/23 07:39 Est GFR ( Amer) 99.5 ml/min 11 07:39 Est GFR (Non-Af Amer) 85.9 ml/min 06/05/23 07:39 BUN/Creatinine Ratio 14.8 (10-20) 11 07:39 Glucose 99 mg/dl (70-99(Fasting)) 11 07:39 Estimat Average Glucose 120 mg/dl 06/04/23 00:30 Hemoglobin A1c 5.8 % (4.5-5.6) H 06/04/23 00:30 Lactate 0.8 mmol/L (0.4-2.0) 06/04/23 03:50 Calcium 8.7 mg/dl (8.6-10.3) 06/05/23 07:39 Magnesium 2.1 mg/dl (1.7-2.4) 06/05/23 07:39 Total Bilirubin 0.4 mg/dl (0.2-1.0) 06/04/23 00:30 AST 15 U/L (13-39) 06/04/23 00:30 ALT 9 U/L (7-52) 06/04/23 00:30 Alkaline Phosphatase 64 U/L (34-104) 06/04/23 00:30 Total Protein 7.7 gm/dl (6.0-8.3) 06/04/23 00:30 Albumin 4.3 gm/dl (3.4-5.0) 06/04/23 00:30 Globulin 3.4 gm/dl (2.5-4.0) 06/04/23 00:30 Albumin/Globulin Ratio 1.3 (0.9-2) 06/04/23 00:30 HCG, Qual Negative (Negative) 06/04/23 00:30 Urine Color Dark Yellow 06/04/23 00:52 Urine Appearance Turbid (Clear) A 06/04/23 00:52 Urine pH 6.5 (4.5-7.5) 06/04/23 00:52 Ur Specific [place] 1.016 (1.000-1.030) 06/04/23 00:52 Urine Protein 3+ (Negative) H 06/04/23 00:52 Urine Glucose (UA) Negative (Negative) 06/04/23 00:52 Urine Ketones Trace (Negative) H 06/04/23 00:52 Urine Blood 3+ (Negative) H 06/04/23 00:52 Urine Nitrite Positive (Negative) A 06/04/23 00:52 Urine Bilirubin Negative (Negative) 06/04/23 00:52 Urine Urobilinogen Negative (Negative) 06/04/23 00:52 Ur Leukocyte Esterase 3+ (Negative) H 06/04/23 00:52 Urine WBC (Auto) >30 /hpf (0-5) H 06/04/23 00:52 Urine RBC (Auto) >30 /hpf (0-4) H 06/04/23 00:52 U Hyaline Cast (Auto) 0 /lpf (0-5) 06/04/23 00:52 U Epithel Cells (Auto) >30 /lpf (0-5) H 06/04/23 00:52 Urine Bacteria (Auto) 1+ (Negative) H 06/04/23 00:52 Urine Mucus Present (None Prsent) A 06/04/23 00:52 Urine Yeast Not Reportable 06/04/23 00:52 Impressions Abdomen/Pelvis CT 06/04/23 01:45 Exam(s): CT ABDOMEN + PELVIS Without Contrast EXAM: CT Abdomen and Pelvis Without Intravenous Contrast CLINICAL HISTORY: Reason for exam: flank pain, uti symptoms. TECHNIQUE: Axial computed tomography images of the abdomen and pelvis without intravenous contrast. CTDI is 9 mGy and DLP is 400.18 mGy-cm. Automated exposure control was utilized for the study. A dose lowering technique was utilized adhering to the principles of ALARA. COMPARISON: Comparison is made to prior exam dated 03/27/2023 FINDINGS: Limitations: Exam limited without oral and IV contrast. Lung bases: Unremarkable. No mass. No consolidation. ABDOMEN: Liver: Unremarkable. Gallbladder and bile ducts: Cholelithiasis without CT evidence to suggest acute cholecystitis. No ductal dilation. Pancreas: Unremarkable. No ductal dilation. Spleen: Unremarkable. No splenomegaly. Adrenals: Unremarkable. No mass. Kidneys and ureters: Unremarkable. No obstructing stones. No hydronephrosis. Stomach and bowel: Unremarkable. No obstruction. No mucosal thickening. PELVIS: Appendix: The appendix is not clearly visualized on this exam there is no CT evidence to suggest acute appendicitis. Bladder: Unremarkable. No stones. Reproductive: Uterus is surgically absent. ABDOMEN and PELVIS: Intraperitoneal space: Unremarkable. No free air. No significant fluid collection. Bones/joints: No acute fracture. No dislocation. Soft tissues: Unremarkable. Vasculature: Unremarkable. No abdominal aortic aneurysm. Lymph nodes: Unremarkable. No enlarged lymph nodes. IMPRESSION: No acute findings in the abdomen or pelvis. Electronically signed by: Salvatore Reich MD 06/04/23 04:00 AM Ordered Studies 06/04/23 01:45 CT abd pelvis wo con Stat Hospital Course (1) Complicated UTI (urinary tract infection): Complicated urinary tract infection Failed outpatient treatment --CT ABD:No acute findings in the abdomen or pelvis. --Outpatient urine culture from 06/03/2023 grew pansensitive E. coli --Blood cultures negative to date Repeat urine culture noncontributory Received IV fluids Continue IV Rocephin Pyridium as needed Transition to p.o. 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 DVT Px: Lovenox SQ Code Status Full code Disposition Home Total Time Total Time Spent Total Time Spent (In Minutes): 55 minutes Discharge Plan Discharge Items Patient Disposition: Home - Self-Care Reason For Visit: COMP UTI Discharge Diagnosis: Complicated urinary tract infection Activity: Per Instructions section Exercise/Sports: Gradually increase as tolerated Non-emergency contact: Primary Care Provider Call non-emergency contact if: you have any medication questions, your symptoms worsen, your pain is concerning for you and you have a fever Follow-up/Referrals: Yuli Castro PA-C [Primary Care Provider] - Diet: Regular Addtl Attending Provider Instructions: Follow-up with your primary care physician Yuli Castro PA-C in 1 week. --- Complete the antibiotic course Cefdinir as prescribed. (Start taking from 06/06/23) -- Your final blood cultures are pending at the time of discharge. Follow-up with your physician for results. Seek immediate medical attention if your symptoms reoccur or worsen Please take all medications as instructed on discharge list below. Please call if you have any questions or problems. You can reach a [facility] hospitalist on duty at [facility] 24 hours a day by calling [phone] Pending Studies at Discharge: Yes Studies:: Blood Cultures Stand-Alone Forms: My [facility], Smoking Cessation Medications and DC Order Prescriptions: New polyethylene glycol 3350 [Miralax] 17 gram Powder In Packet 17 g PO DAILY PRN (Reason: constipation) Qty: 14 0RF docusate sodium 100 mg Capsule 100 mg PO BID PRN (Reason: Constipation) Qty: 30 0RF phenazopyridine 100 mg tablet 100 mg PO TID PRN (Reason: pain) Qty: 14 0RF cefdinir 300 mg capsule 300 mg PO BID Qty: 10 0RF Continued pantoprazole 40 mg tablet,delayed release (DR/EC) 40 mg PO DAILY Qty: 14 0RF famotidine [Pepcid] 20 mg tablet 20 mg PO DAILY Qty: 14 0RF ondansetron HCl 4 mg tablet 4 mg PO Q8H PRN (Reason: nausea and vomiting) Qty: 20 0RF Discontinued nitrofurantoin monohyd/m-cryst 100 mg capsule 100 mg PO BID Rx Instructions: STARTED 06/03/23 FOR 10 DAYS. Discharge Orders: Discharge Order (Routine); Ordered 06/05/23 Ordered By: Juan Del Rosario Admission Data Admit Date/Time: 06/04/23 05:40 Attending Provider: Juan Del Rosario Admit Provider: Sergio Tapia Primary Care Provider: Yuli Castro Other Providers: Sergio Tapia
--- OUTSIDE RECORDS SUMMARY | 2023-06-08 08:37 | External Medical Summary | Summary of Care ---
Author Name Unknown Organization [facility] Address [address] [place] [address] Phone [phone] Care Team Providers Care Churn Operator Name Role Phone Arcenio Puri MD Primary Care Provider [phone]- [phone] Reason for Visit * Reason Comments Urinary Tract Infection Symptoms Encounter Details Date Type Department Care Team (Late st Contact Info) Description 06/03/2023 3:00 PM EST Office Visit Family [facility] [address] [facility] [place] [address] Florian Black, DO [address] [facility] [place] [address] Acute cystitis with hematuria* Allergies Active Allergy Reactions Criticality Noted Date Comments Bactrim 11/01/2013 Clogs her throat Clonidine 08/03/2018 hallucinations Paroxetine Hcl 02/02/2015 Really makes her depression worse - wendi other ssri and snri documented as of this encounter (statuses as of 06/03/2023) Medications Medication Sig Dispensed Refills Start Date End Date Status Famotidine 20 MG Oral Tablet (Pepcid) Take 1 Tablet by mouth in the morning. 30 Tablet 2 04/03/2023 Active Ondansetron HCl 4 MG Oral Tablet (Zofran) Take 1 Tablet by mouth every 8 hours as needed (nausea). 60 Tablet 3 04/03/2023 Active Pantoprazole Sodium 40 MG Oral Tablet Delayed Release (Protonix) Take 1 Tablet by mouth in the morning. 30 Tablet 2 04/03/2023 Active Nitrofurantoin Monohyd Macro 100 MG Oral Capsule (Macrobid)Indicatio ns:Acute cystitis with hematuria Take 1 Capsule by mouth in the morning and 1 Capsule before bedtime. Do all this for 7 days. With food until gone. 14 Capsule 0 06/03/2023 2023 Active documented as of this encounter (statuses as of 06/03/2023) Active Problems Problem Noted Date Diagnosed Date Gastro-esophageal reflux disease without esophag itis 06/03/2023 Restless legs syndrome 01/14/2022 Other intervertebral disc degeneration, lumbar r egion 01/14/2022 Food insecurity 03/05/2021 Overview: Per [facility] Protocol Tobacco use disorder 09/19/2011 Major depressive disorder 09/19/2011 Overview: ICD-10 update of inactive term Cervical spondylosis 01/13/2009 VARIANTS OF MIGRAINE WITH INTRACTABLE MIGRAINE, SO STATED 04/25/2006 documented as of this encounter (statuses as of 06/03/2023) Resolved Problems Problem Noted Date Diagnosed Date Resolved Date Suspected COVID-19 virus infection 05/10/2021 04/03/2023 Viral URI with cough 05/10/2021 023 H/O: hysterectomy 01/21/2017 05/28/2017 Vitamin D deficiency 12/08/2013 019 Chronic back pain 09/19/2011 01/21/2017 Obstipation 09/19/2011 01/15/2017 Spasm of muscle 09/19/2011 01/15/2017 Sprain, lumbosacral 09/19/2011 01/16/20 17 osteophyte formation L2-L3 01/30/2009 0 08/31/2018 ADVANCE DIRECTIVE INFORMATION 04/04/2006 05/28/2017 Overview: Brochure given to pt ACUTE PHARYNGITIS 12/04/2005 09/15/2008 Overview: Resolved per Benign Acute Dxs Protocol #3 ACUTE URI NOS 12/04/2005 09/15/2008 Overview: Resolved per Benign Acute Dxs Protocol #3 Chronic rhinitis 12/04/2005 01/15/2017 Cough 12/04/2005 01/15/2017 ROTATOR CUFF SYNDROME, RIGHT SHOULDER 12/04/2005 01/15/2017 Calculus of ureter 09/27/2005 7 Varicella without complication 06/05/2005 01/15/2017 MED EXAM NEC-ADMIN PURP 06/05/200512/27 HAND DERMATITIS 06/05/2005 01/15/2017 Visual disturbance 09/11/2004 5 Edema of eyelid 09/11/2004 06/05/2005 Dermatitis 03/12/2002 06/05/2005 Major depressive disorder 07/11/1999 Overview: ICD-10 update of inactive term Tobacco use disorder 012 documented as of this encounter (statuses as of 06/03/2023) Immunizations Name Administration Dates Next Due PPD 08/01/2008 Pneumococcal Polysaccharide PPV23 (Pneumovax) 06/11/2013,01/02/2009(Deferred: Patient Refused - checking ins) TD, Preservative Free 01/14/2022 TDAP (age 10 and older)(Boostrix) 06/11/2013 documented as of this encounter Social History Tobacco Use Types Packs/Day Years Used Date Smoking Tobacco: Every Day Cigarettes 0.5 15 Smokeless Tobacco: Never Comments:began at age 14 Alcohol Use Standard Drinks/Week Comments No 0 (1 standard drink = 0.6 oz pur e alcohol) none PHQ-2 Answer Date Recorded PHQ Adult Total Score 2 09/12/2020 Hunger Vital Sign Answer Date Recorded Within the past 12 months, y ou worried that your food would run out before you got the money to buy more. Sometimes true Within the past 12 months, t he food you bought just didn't last and you didn't have money to get more. Sometimes true Sex and Gender Information Value Date Recorded Sex Assigned at Female 12/04/2018 9:13 AM EDT Gender Identity Female 12/04/2018 9:13 AM EDT Sexual Orientation Straight 12/04/2018 9: 13 AM EDT Job Start Date Occupation Industry Not on file Not on file Not on file documented as of this encounter Last Filed Vital Signs Vital Sign Reading Time Taken Comments Blood Pressure 130/82 06/03/2023 2:59 PM EST Pulse 65 06/03/2023 2:59 PM EST Temperature 36.3 C (97.4 F) 06/03/2023 2:59 PM ES T Respiratory Rate 16 06/03/2023 2:59 PM EST Oxygen Saturation 98% 06/03/2023 2:59 PM EST Inhaled Oxygen Concentration - - Weight 55.8 kg (123 lb) 06/03/2023 2:59 PM EST Height - - Body Mass Index 23.24 04/03/2023 11:05 AM EDT documented in this encounter Progress Notes * Florain Black, DO - 06/03/2023 3:15 PM EST Subjective: Giselle Blanton is a 47 year old female. Chief Complaint Patient presents with Urinary Tract Infection Symptoms HPI: Urinary frequency and burning for 2 days. Needs to push. No blood in her urine. She has some back pain down low on the R. Sometimes in her lower abdomen also. No F or C. PMHx, meds, and allergies reviewed Patient Active Problem List Diagnosis Code VARIANTS OF MIGRAINE WITH INTRACTABLE MIGRAINE, SO STATED G43.819 Cervical spondylosis M47.812 Tobacco use disorder F17.200 Major depressive disorder F32.9 Food insecurity Z59.41 Restless legs syndrome G25.81 Other intervertebral disc degeneration, lumbar region M51.36 Gastro-esophageal reflux disease without esophagitis K21.9 Current Outpatient Medications Medication Sig Dispense Refill Famotidine 20 MG Oral Tablet (Pepcid) Take 1 Tablet by mouth in the morning. 30 Tablet 2 Ondansetron HCl 4 MG Oral Tablet (Zofran) Take 1 Tablet by mouth every 8 hours as needed (nausea). 60 Tablet 3 Pantoprazole Sodium 40 MG Oral Tablet Delayed Release (Protonix) Take 1 Tablet by mouth in the morning. 30 Tablet 2 No current facility-administered medications for this visit. Review of patient's allergies indicates: Allergen Reactions Bactrim Clogs her throat Clonidine hallucinations Paxil [Paroxetine Hcl] Really makes her depression worse - wendi other ssri and snri OBJECTIVE: BP 130/82 | Pulse 65 | Temp 36.3 C (97.4 F) (Tympanic) | Resp 16 | Wt 55.8 kg (123 lb) | LMP 12/31/2010 | SpO2 98% | BMI 23.24 kg/m | BSA 1.55 m Estimated body mass index is 23.24 kg/m as calculated from the following: Height as of 04/03/23: 1.549 m (5' 1"). Weight as of this encounter: 55.8 kg (123 lb). BP Readings from Last 3 Encounters: 06/03/23 130/82 04/03/23 126/78 12/16/22 124/74 Wt Readings from Last 3 Encounters: 06/03/23 55.8 kg (123 lb) 04/03/23 54.4 kg (120 lb) 12/16/22 54.5 kg (120 lb 3.2 oz) ROS: Negative except for above PHYSICAL EXAM: General: alert, healthy, and no distress Head: Normocephalic, No masses, lesions, tenderness or abnormalities Abdomen: abdomen soft, non-tender, normal bowel sounds, and no masses or organomegaly Back: back symmetric, no curvature, no costovertebral angle tenderness, range of motion is normal ASSESSMENT/Plan Acute cystitis with hematuria (Primary) - Nitrofurantoin Monohyd Macro 100 MG Oral Capsule (Macrobid); Take 1 Capsule by mouth in the morning and 1 Capsule before bedtime. Do all this for 7 days. With food until gone. Start abx and check culture. The above was discussed and understanding was expressed. Florian Black DO documented in this encounter Nursing Notes * Sola Maldonado LPN - 06/03/2023 2:57 PM EST Patient presents in office today with C/O UTI symptoms that started two days ago. Burning with urination, frequency and urgency. Lower right back pain.. does not notice blood or odor but is cloudy.. has not taken anything for symptoms. documented in this encounter Plan of Treatment Upcoming Encounters Date Type Department Care Team (Late st Contact Info) Description 06/06/2023 4:00 PM EST Imaging Radiology [address] [place] [address] Scheduled Orders Name Type Priority Associated Diagnoses Orde r Schedule CULTURE, URINE, QUANTITATIVE Lab Routine Acute cystitis with hematuria Ordered: 06/03/2023 Scheduled Procedures Name Priority Associated Diagnoses Date/Ti me COLONOSCOPY FLEXIBLE PROXIMAL DIAGNOSTIC Recall History of colon polyps Health Maintenance Due Date Last Done Comments Hepatitis B (1 of 3 - 3-dose series) 1974 COVID-19 Vaccine (#1) 1974 Hepatitis C Screening 1992 Pneumococcal Vaccine: Pediatrics (0 to 5 Years) and At-Risk Patients (6 to 64 Years) (2 - PCV) 06/11/2014 06/11/2013 Depression Screening 09/12/2021 09/12/2020 Lipid Panel 05/12/2022 05/12/2017, 09/26, 11/22/2013 Mammogram 01/16/2023 01/16/2022, 04/27, 03/20/2015, Additional history exists Influenza Vaccine (FLU shot) (#1) 2023 COLONOSCOPY-ANNUAL AGES 18-100 06/05/2023 06/05/2022, 06/05/2022 DTaP,Tdap,and Td Vaccines (4 - Td or Tdap) 01/15/2032 01/14/2022, 06/11/2013, 02/26/2000, Additional history exists Colonoscopy Discontinued 06/05/2022, 06/05/2022 Colorectal Cancer Screening Discontinued Cologuard Discontinued Fecal Occult Blood Test Discontinued GARDASIL-HPV IMMUNIZATION SERIES Aged Out No longer eligible based on patient's age to complete this topic MENINGOCOCCAL (MENACTRA/MENVEO) Aged Out No longer eligible based on patient's age to complete this topic Sigmoidoscopy Discontinued documented as of this encounter Medical Devices Implanted Type Area Art Glass Setter Device Identifier Shelf Expiration Date Model / Serial / Lot Sureclip 16mm 235cm - [id number] Implanted:Qty: 3 on 06/05/2022 by Isidro Golden MD at ENDOSCOPY [facility] MICRO TECH ENDOSCOPY 09/12/2023 [id number] / / [id number] Description:2 sure clips wer e placed at sigmoid colon polyp site and 1 sure clip was placed at rectal polyp site documented as of this encounter Visit Diagnoses Diagnosis Acute cystitis with hematuria- Primary Acute cystitis documented in this encounter Care Teams Churn Operator Relationship Specialty Start Date End Date Arcenio Puri MD [address] [place] [address] PCP - General Family Medicine 06/04/13 documented as of this encounter
--- OUTSIDE RECORDS SUMMARY | 2023-06-08 08:37 | External Medical Summary | Summary of Care ---
Author Name Unknown Organization [facility] Address [address] [place] [address] Phone [phone] Care Team Providers Care Podiatric Medicine Professor Name Role Phone Arcenio Puri MD Primary Care Provider +1- [phone] Reason for Visit * Reason Onset Date Comments Hospital Follow-Up Hospital Follow-Up 04/03/2023 Encounter Details Date Type Department Care Team Description 04/03/2023 Office Visit [facility] [id number] [place] [address] Arcenio Puri MD [address] [place] [address] Gastritis without bleeding, unspecified chronicity, unspecified gastritis type*; Abdominal pain, epigastric; Hospital discharge follow-up Allergies Active Allergy Reactions Severity Noted Date Comments Bactrim 11/01/2013 Clogs her throat Clonidine 08/03/2018 hallucinations Paroxetine Hcl 02/02/2015 Really makes her depression worse - wendi other ssri and snri documented as of this encounter (statuses as of 04/03/2023) Medications Medication Sig Dispensed Refills Start Date [...] mouth every 8 hours as needed (nausea). 0 03/28/2023 04/03/2023 Discontinued( Refill) Famotidine 20 MG Oral Tablet (Pepcid) Take 1 Tablet by mouth in the morning. 0 03/28/2023 04/03/2023 Discontinued( Refill) Pantoprazole Sodium 40 MG Oral Tablet Delayed Release (Protonix) Take 1 Tablet by mouth in the morning. 0 03/28/2023 04/03/2023 Discontinued( Refill) documented as of this encounter (statuses as of 04/03/2023) Active Problems Problem Noted Date Restless legs syndrome 01/14/2022 Other intervertebral disc degeneration, lumbar region 01/14/2022 Food insecurity 03/05/2021 Overview: Per [facility] Protocol Tobacco use disorder 09/19/2011 Major depressive disorder 09/19/2011 Overview: ICD-10 update of inactive term Cervical spondylosis 01/13/2009 VARIANTS OF MIGRAINE WITH INTRACTABLE [place] GRAINE, SO STATED 04/25/2006 documented as of this encounter (statuses as of 04/03/2023) Resolved Problems Problem Noted Date Resolved Date Suspected COVID-19 virus infection 05/10/2021 04/03/2023 Viral URI with cough 05/10/2021 04/03/2023 H/O: hysterectomy 01/21/2017 05/28/2017 Vitamin D deficiency 12/08/2013 08/31/2018 Chronic back pain 09/19/2011 01/21/2017 Obstipation 09/19/2011 01/15/2017 Spasm of muscle 09/19/2011 01/15/2017 Sprain, lumbosacral 09/19/2011 01/15/2017 osteophyte formation L2-L3 01/30/200908/31 ADVANCE DIRECTIVE INFORMATION 04/04/2006 Overview: Brochure given to pt ACUTE PHARYNGITIS 12/04/2005 09/15/2008 Overview: Resolved per Benign Acute Dxs Protocol #3 ACUTE URI NOS 12/04/2005 09/15/2008 Overview: Resolved per Benign Acute Dxs Protocol #3 Chronic rhinitis 12/04/2005 01/15/2017 Cough 12/04/2005 01/15/2017 ROTATOR CUFF SYNDROME, RIGHT SHOULDER 12/04/2005 01/15/2017 Calculus of ureter 09/27/2005 01/15/2017 Varicella without complication 06/05/2005 0 01/15/2017 MED EXAM NEC-ADMIN PURP 06/05/2005 01/16/20 17 HAND DERMATITIS 06/05/2005 01/15/2017 Visual disturbance 09/11/2004 06/05/2005 Edema of eyelid 09/11/2004 06/05/2005 Dermatitis 03/12/2002 06/05/2005 Major depressive disorder 07/11/19992011 Overview: ICD-10 update of inactive term Tobacco use disorder 09/19/2011 documented as of this encounter (statuses as of 04/03/2023) Immunizations Name Administration Dates Next Due PPD [...] = 0.6 oz pur e alcohol) none Food Insecurity Answer Date Recorded Within the past 12 months, y ou worried that your food would run out before you got money to buy more. Sometimes true 2020 Within the past 12 months, t he food you bought just didn't last and you didn't have money to get more. Sometimes true Sex Assigned at Date Recorded Female 12/04/2018 9:13 AM E DT Job Start Date Occupation Industry Not on file Not on file Not on file documented as of this encounter Last Filed Vital Signs Vital Sign Reading Time Taken Comments Blood Pressure 126/78 04/03/2023 11:05 AM EDT Pulse 82 04/03/2023 11:05 AM EDT Temperature 36.6 C (97.8 F) 04/03/2023 11:05 AM E DT Respiratory Rate 14 04/03/2023 11:05 AM EDT Oxygen Saturation 98% 04/03/2023 11:05 AM EDT Inhaled Oxygen Concentration - - Weight 54.4 kg (120 lb) 04/03/2023 11:05 AM EDT Height 154.9 cm (5' 1") 04/03/2023 11:05 AM EDT Body Mass Index 22.67 04/03/2023 11:05 AM EDT documented in this encounter Progress Notes * Arcenio Puri MD - 04/03/2023 8:52 PM EDT Subjective: Giselle Blanton is a 47 year old female here today for Chief Complaint Patient presents with Hospital Follow-Up Hospital Follow-Up Pt presents for hospital follow up. Admitted to [facility] 03/27/23 - 03/28/23 for increased issues with epigastric abd pain, nausea, vomiting. On initial eval, did have a slightly elevated WBC. She had a negative CT of the abd and pelvis, RUQ u/s, HIDA scan. Was seen by surgery. Did see some improvement insymptoms with PPI. Symptoms felt to relate to gastritis/ulcer disease. It was suggested that she continue PPI and H2 simone and use ondansetron prn. She reports drinking about a 2L bottle of soda daily. She eats very poorly - largely related to financial issues. May eat just 1 sandwich daily. Doescontinue to smoke. States that her symptoms have improved a little since the hospital - has not had emesis for a few days. Past Medical History: Diagnosis Date Anxiety state Major depressive disorder, single episode, moderate (HCC) 1997 after divorce-- Prozac Varicella without complication Past Surgical History: Procedure Laterality Date COLONOSCOPY, DIAGNOSTIC (RECTUM) 06/05/2022 benign adenomatous polyps, diverticulosis, repeat 1 yr / COLONOSCOPY FLEXIBLE PROXIMAL DIAGNOSTIC performed by Isidro Golden MD at ENDOSCOPY [facility] D&C AFTER DELIVERY D&C, post -miscarriage DENTAL SURGERY PROCEDURE NEC 25 wisdom teeth x 6 EGD, FLEXIBLE, DIAGNOSTIC 09/26/2015 normal bx/ESOPHAGOGASTRODUODENOSCOPY (EGD), FLEXIBLE, TRANSORAL, DIAGNOSTIC performed by Ra Louis MD at ENDOSCOPY [facility] LAP;FULGURATION OVIDUCTS 09/25/2004 Tubal Ligation,Laparoscopic PARTIAL HYSTERECTOMY still has L ovary, had endometriosus UNLISTED LAPAROSCOPY;ABDOMEN [place], no evidence of endometriosis Review of patient's allergies indicates: Allergen Reactions Bactrim Clogs her throat Clonidine hallucinations Paxil [Paroxetine Hcl] Really makes her depression worse - wendi other ssri and snri Current Outpatient Medications Medication Sig Dispense Refill [...] No current facility-administered medications for this visit. Objective: BP 126/78 | Pulse 82 | Temp 36.6 C (97.8 F) (Infrared ) | Resp 14 | Ht 1.549 m (5' 1") | Wt 54.4 kg (120 lb) | LMP 12/31/2010 | SpO2 98% | BMI 22.67 kg/m | BSA 1.53 m GEN: NAD HEENT: Benign NECK: Supple with no LAD, TM, JVD CHEST: CTA B CV: RRR ABD: she does have abd tenderness in the epigastric area but also somewhat diffusely. EXT: No c,c,e Assessment and Plan: Gastritis without bleeding, unspecified chronicity, unspecified gastritis type (Primary) Abdominal pain, epigastric -encourage continued use of PPI+H2 simone for atleast 3 months. Refills provided. May use ondansetron as needed to assist with emesis. Strongly encouraged improved diet and smoking cessation and decrease soda intake. -reviewed EGD as next step. She prefers to see if symptoms continue to improve with current treatments. Will call for new or worsening symptoms. Hospital discharge follow-up - DISCH MED RECON CUR MED LIS Other orders - Famotidine 20 MG Oral Tablet (Pepcid); Take 1 Tablet by mouth in the morning. - Ondansetron HCl 4 MG Oral Tablet (Zofran); Take 1 Tablet by mouth every 8 hours as needed (nausea). - Pantoprazole Sodium 40 MG Oral Tablet Delayed Release (Protonix); Take 1 Tablet by mouth in the morning. Arcenio Puri MD documented in this encounter Nursing Notes * Earline Gonsales LPN - 04/03/2023 11:04 AM EDT The patient has been properly identified by confirmation of name and date of . Chief Complaint Patient presents with Hospital Follow-Up [facility] d/c 03/29/23- Last few months had heartburn issues and nausea issues. Woke up Fris with severe abdominal pain. documented in this encounter Plan of Treatment Scheduled Procedures Name Priority Associated Diagnoses Date/Ti [...] this encounter Medical Devices Implanted Type Area Coordinator Of Online Programs Device Identifier Shelf Expiration Date Model / Serial / Lot Jenniferclip 16mm 235cm - [id number] Implanted:Qty: 3 on 06/05/2022 by Isidro Golden MD at [facility]COPY [facility] MICRO TECH ENDOSCOPY 09/12/2023 [id number] / / [id number] Description:2 sure clips wer e placed at sigmoid colon polyp site and 1 sure clip was placed at rectal polyp site documented as of this encounter Visit Diagnoses Diagnosis Gastritis without bleeding, unspecified chronicity, unspecified gastritis type- Primary Abdominal pain, epigastric Hospital discharge follow-up Other follow-up examination documented in this encounter Care Teams Podiatric Medicine Professor Relationship Specialty Start Date End Date Arcenio Puri MD [address] [place] [address] PCP - General Family Medicine 06/04/13 documented as of this encounter
--- OUTSIDE RECORDS SUMMARY | 2023-06-08 08:37 | External Medical Summary | Summary of Care ---
Author Name Unknown Organization [facility] Address [address] [place] [address] Phone [phone] Care Team Providers Care Park Landscape Architect Name Role Phone Arcenio Puri MD Primary Care Provider +1- [phone] Reason for Visit * Reason Comments Urinary Tract Infection Symptoms Encounter Details Date Type Department Care Team (Late st Contact Info) Description 06/03/2023 3:00 PM EST Office Visit Family [facility] [address] [facility] [place] [address] Florian Black, DO [address] [facility] [place] [address] Acute cystitis with hematuria* Allergies Active Allergy [...] documented in this encounter Progress Notes * Florian Black, DO - 06/03/2023 3:15 PM EST [...] Description 06/06/2023 4:00 PM EST Imaging Radiology [address] [place] [address] Scheduled Orders Name [...] this encounter Medical Devices Implanted Type Area Ems Manager Device Identifier Shelf Expiration Date Model / Serial / Lot Sureclip 16mm 235cm - [id number] Implanted:Qty: 3 on 06/05/2022 by Isidro Golden MD at ENDOSCOPY [facility] MICRO TECH ENDOSCOPY 09/12/2023 [id number] / / [id number] Description:2 sure clips wer e placed at sigmoid colon polyp site and 1 sure clip was placed at rectal polyp site documented as of this encounter Visit Diagnoses Diagnosis Acute cystitis with hematuria- Primary Acute cystitis documented in this encounter Care Teams [place] Landscape Architect Relationship Specialty Start Date End Date Arcenio Puri MD [address] [place] [address] PCP - General Family Medicine 06/04/13 documented as of this encounter
--- OUTSIDE RECORDS SUMMARY | 2023-06-08 08:37 | External Medical Summary | Summary of Care ---
Author Name Unknown Organization [facility] Address [address] [place] [address] Phone [phone] Care Team Providers Care Risk Management Professional Name Role Phone Arcenio Nielsen MD Primary Care Provider [phone] Reason for Visit * Reason Onset Date Comments Test Results 12/18/2022 Encounter Details Date Type Department Care Team Description 12/18/2022 Telephone [facility] [address] [place] [address] Arcenio Nielsen MD [address] [place] [address] Test Results Allergies Active Allergy Reactions Severity Noted Date Comments Bactrim 11/01/2013 Clogs her throat Clonidine 08/03/2018 hallucinations Paroxetine Hcl 02/02/2015 Really makes her depression worse - wendi other ssri and snri documented as of this encounter (statuses as of 03/07/2023) Medications Medication Sig Dispensed Refills Start Date End Date Status Fluconazole 100 MG Oral Tablet (Diflucan)Indicatio ns:Candidal vulvovaginitis,Dysu jenny Take 1 Tablet by mouth in the morning for 7 days. Two tablets on the first day, then One tablet once a day for 3 weeks. 7 Tablet 0 12/16/2022 12/23/2022 Nitrofurantoin Monohyd Macro 100 MG Oral Capsule (Macrobid)Indicatio ns:Dysuria Take 1 Capsule by mouth in the morning and 1 Capsule before bedtime. Do all this for 7 days. With food until gone. 14 Capsule 0 12/16/2022 12/23/2022 documented as of this encounter (statuses as of 03/07/2023) Active Problems Problem Noted Date Restless legs syndrome 01/14/2022 Other intervertebral disc degeneration, lumbar region 01/14/2022 Suspected COVID-19 virus infection 05/10 Viral URI with cough 05/10/2021 Food insecurity 03/05/2021 Overview: Per [facility] Protocol Tobacco use disorder 09/19/2011 Major depressive disorder 09/19/2011 Overview: ICD-10 update of inactive term Cervical spondylosis 01/13/2009 VARIANTS OF MIGRAINE WITH INTRACTABLE MO GRAINE, SO STATED 04/25/2006 documented as of this encounter (statuses as of 03/07/2023) Resolved Problems Problem Noted Date Resolved Date H/O: hysterectomy 01/21/2017 05/28/2017 Vitamin D deficiency [...] as of this encounter (statuses as of 03/07/2023) Immunizations Name Administration Dates Next Due PPD [...] on file documented as of this encounter Miscellaneous Notes * Telephone Encounter - AILYN Philip - 12/19/2022 11:36 AM EDT Called Patient she is aware and understands message. No further questions. * Telephone Encounter - Yuli Castro PA-C - 12/18/2022 3:53 PM EDT Urine did have infection The antibiotic she is on should clear it - it was bacterial not yeast Yuli Castro PA-C 12/18/2022 3:53 PM * Telephone Encounter - DIANNE Gutierrez - 12/18/2022 2:50 PM EDT Who is Requesting Test Results: patient Primary Care Provider : dr nielsen Tests Results Requested : urine Date of Test : 12.16.22 Location of Test: clinic Ordering Provider: pcp Callback Number: [phone] Patient has been made aware that the turnaround time for test results are typically as follows: Laboratory results = within 2 days Urine Cultures = within 2-3 days depending on growth within the culture Pathology results (biopsy results/PAP) = 1-2 weeks Radiology results = within 1 week Cologuard results = within 2 weeks from the shipment date COVID testing = results are on average 7 days documented in this encounter Plan of Treatment [...] Years) (2 - PCV) 06/11/2014 06/11/2013 Depression Screening, Annual for Pts 12 and Over 09/12/2021 09/12/2020 Lipid Panel 05/12/2022 05/12/2017, 09/26, [...] this encounter Medical Devices Implanted Type Area Hospice Office Coordinator Device Identifier Shelf Expiration Date Model / Serial / Lot Sureclip 16mm 235cm - [id number] Implanted:Qty: 3 on 06/05/2022 by Isidro Golden MD at ENDOSCOPY [facility] ENDOSCOPY 09/12/2023 [id number] / / [id number] Description:2 sure clips wer e placed at sigmoid colon polyp site and 1 sure clip was placed at rectal polyp site documented as of this encounter Care Teams Risk Management Professional Relationship Specialty Start Date End Date Arcenio Nielsen MD [address], [place] [phone] PCP - General Family Medicine 06/04/13 documented as of this encounter
== END 2023-06-05 13:35 | disposition home or self-care (01) | DRG 690 ==
LOC: ED 00:04 → EDINP 05:40 → 3W 16:40
DX: F17.290 Nicotine dependence, other tobacco product, uncomplicated; K21.9 Gastro-esophageal reflux disease without esophagitis; R73.03 Prediabetes; F41.9 Anxiety disorder, unspecified; Z71.6 Tobacco abuse counseling; F17.210 Nicotine dependence, cigarettes, uncomplicated; Z79.899 Other long term (current) drug therapy; N39.0 Urinary tract infection, site not specified; Z88.2 Allergy status to sulfonamides; Z88.8 Allergy status to other drugs, medicaments and biological substances